=== PATIENT | male | born 1960 | race Caucasian/White ===

== ENCOUNTER 2017-10-04 17:13 | Emergency (ER) | payer OTHER ==
[2017-10-04 18:43] LABS: Absolute Lymphocytes (CBC) 2.4 K/uL (0.7-4.9); Absolute Neutrophil 6.7 K/uL (1.8-8.0); Eosinophils % 1.6 % (0-4.4); Hematocrit 46.7 % (39.6-49.0); Lymphocytes % 22.8 % (15.3-44.8); MCH 27.9 pg (27.0-35.0); MCV 83.8 fL (80-100); MPV 8.4 fL (7.6-11.3); Monocytes % 9.8 % (3.3-12.3); RBC Red Blood Cell Count 5.57 M/uL (4.33-5.43)
[2017-10-04 18:45] LABS: Protime INR 1.24
[2017-10-04 18:56] LABS: Potassium 4.3 mEq/L (3.6-5.0)
--- NOTE | 2017-10-04 19:59 | RAD REPORT ---
EXAM DESCRIPTION: VAS - Extremity Venous Uni Ltd - 10/04/2017 7:10 pm CLINICAL HISTORY: Leg pain and swelling COMPARISON: None. TECHNIQUE: Real-time sonographic evaluation of the right lower extremity deep venous systems was per formed. FINDINGS: Normal compressibility, flow augmentation, phasic flow and spontaneous flow are identified in the right lower extremity deep venous system. No intraluminal filling defects seen. IMPRESSION: No DVT in the right lower extremity.
--- NOTE | 2017-10-04 20:17 | EDPHYS ---
Physician Documentation [facility] Name: Tip Wilburn Age: 57 yrs Sex: Male : 1960 Arrival Date: 10/04/2017 Time: 17:17 Bed 7 Private MD: ED Physician Romero Downey HPI: 10/04 18:50 This 57 yrs old Male presents to ER via Ambulatory with complaints of Leg jr8 Swelling. 18:50 The patient presents with pain, swelling, tenderness. The complaints affect the right jr8 leg. Onset: The symptoms/episode began/occurred acutely, yesterday. Modifying factors: The symptoms are alleviated by nothing. the symptoms are aggravated by movement, weight bearing. Associated signs and symptoms: Pertinent positives: fever, warmth. Severity of symptoms: At their worst the symptoms were moderate, in the emergency department the symptoms are unchanged. The patient has not experienced similar symptoms in the past. The patient has not recently seen a physician. Historical: - Allergies: 17:40 unknown medication; ch - PMHx: 17:40 CHF; ch 17:42 Atrial Fib; ch - PSHx: 17:40 defibrilator-not pace maker; R knee; hernia repair with mesh; ch - Immunization history:: Adult Immunizations up to date. - Social history:: Smoking status: Patient/guardian denies using tobacco, Patient/guardian denies using alcohol, street drugs. ROS: 18:50 Eyes: Negative for injury, pain, redness, and discharge, ENT: Negative for injury, jr8 pain, and discharge, Neck: Negative for injury, pain, and swelling, Cardiovascular: Negative for chest pain, palpitations, and edema, Respiratory: Negative for shortness of breath, cough, wheezing, and pleuritic chest pain, Abdomen/GI: Negative for abdominal pain, nausea, vomiting, diarrhea, and constipation, Back: Negative for injury and pain, Skin: Negative for injury, rash, and discoloration, Neuro: Negative for headache, weakness, numbness, tingling, and seizure. 18:50 MS/extremity: Positive for erythema, pain, swelling, tenderness, warmth, of the right leg. Exam: 18:50 Eyes: Pupils equal round and reactive to light, extra-ocular motions intact. Lids and jr8 lashes normal. Conjunctiva and sclera are non-icteric and not injected. Cornea within normal limits. Periorbital areas with no swelling, redness, or edema. ENT: Nares patent. No nasal discharge, no septal abnormalities noted. Tympanic membranes are normal and external auditory canals are clear. Oropharynx with no redness, swelling, or masses, exudates, or evidence of obstruction, uvula midline. Mucous membranes moist. Neck: Trachea midline, no thyromegaly or masses palpated, and no cervical lymphadenopathy. Supple, full range of motion without nuchal rigidity, or vertebral point tenderness. No Meningismus. Cardiovascular: Regular rate and rhythm with a normal S1 and S2. No gallops, murmurs, or rubs. Normal PMI, no JVD. No pulse deficits. Respiratory: Lungs have equal breath sounds bilaterally, clear to auscultation and percussion. No rales, rhonchi or wheezes noted. No increased work of breathing, no retractions or nasal flaring. Abdomen/GI: Soft, non-tender, with normal bowel sounds. No distension or tympany. No guarding or rebound. No evidence of tenderness throughout. Back: No spinal tenderness. No costovertebral tenderness. Full range of motion. Skin: Warm, dry with normal turgor. Normal color with no rashes, no lesions, and no evidence of cellulitis. Neuro: Awake and alert, GCS 15, oriented to person, place, time, and situation. Cranial nerves II-XII grossly intact. Motor strength 5/5 in all extremities. Sensory grossly intact. Cerebellar exam normal. Normal gait. 18:50 Musculoskeletal/extremity: Extremities: grossly normal except: noted in the right leg: Patients lower right leg from tibial region to ankle his moderate erythema and swelling noted. Erythema circumferential. Mild tenderness. No palpable cord felt , ROM: intact in all extremities, Circulation is intact in all extremities. Sensation intact. DVT Exam: pain, of the right leg, swelling, of the right leg, tenderness, of the right leg, erythema, of the right leg, increased warmth, of the right leg. Vital Signs: 17:40 BP 135 / 82; Pulse 64; Resp 16; Temp 98.2; Pulse Ox 99% on R/A; Weight 148.32 kg; ch Height 6 ft. 2 in. (187.96 cm); Pain 0/10; 19:45 BP 112 / 75; Pulse 65; Resp 18 S; Pulse Ox 99% on R/A; Pain 3/10; ea 20:37 BP 118 / 78; Pulse 62; Resp 18 S; Pulse Ox 99% on R/A; Pain 0/10; ea 20:56 BP 123 / 87; Pulse 60; Resp 18 S; Pulse Ox 99% on R/A; Pain 0/10; ea 17:40 Body Mass Index 41.98 (148.32 kg, 187.96 cm) ch MDM: 17:44 Patient medically screened. jr8 20:01 Data reviewed: vital signs, nurses notes, lab test result(s), radiologic studies, jr8 ultrasound, and as a result, I will discharge patient. Data interpreted: Pulse oximetry: on room air is 99 %. Interpretation: normal. Counseling: I had a detailed discussion with the patient and/or guardian regarding: the historical points, exam findings, and any diagnostic results supporting the discharge/admit diagnosis, lab results, radiology results, the need for outpatient follow up, a family practitioner, to return to the emergency department if symptoms worsen or persist or if there are any questions or concerns that arise at home. ED course: Discussed with patient that there is no DVT. That this is a cellulitis. No WBC count. No fevers. Able to tolerate PO fluids. Is fine to go home with antibiotics at this point with the recognition that if he started to feel worse or infection was spreading that he immediately come back for admission and IV antibiotic therapy. and patient good with this and would f/u or come back if worse . 20:16 Response to treatment: the patient's symptoms have markedly improved after treatment, jr8 and as a result, I will discharge patient. 10/04 18:00 Order name: CBC with Diff; Complete Time: 18:52 8 10/04 18:00 Order name: Basic Metabolic Panel; Complete Time: 19:36 8 10/04 18:00 Order name: Protime (+inr); Complete Time: 18:52 8 10/04 18:00 Order name: US Extremity Venous Uni Ltd; Complete Time: 20:01 10/04 18:00 Order name: IV - Large Bore; Complete Time: 18:37 8 Administered Medications: 19:42 Drug: Clindamycin 600 mg Route: IVPB; Infused Over: 30 mins; Site: left antecubital; ea 20:15 Follow up: Response: No adverse reaction; IV Status: Completed infusion ea 19:42 Drug: Bactrim (160 mg-800 mg (DS) 1 tablet Route: PO; ea 20:45 Follow up: Response: No adverse reaction ea Disposition: 10/05 06:55 Co-signature as Attending Physician, Romero Downey MD I agree with the assessment and susan plan of care. Disposition: 10/04/17 20:16 Discharged to Home. Impression: Cellulitis of right lower limb. - Condition is Stable. - Discharge Instructions: Cellulitis. - Prescriptions for Clindamycin HCl 300 mg Oral Capsule - take 1 capsule by ORAL route every 6 hours for 10 days; 40 capsule. Tylenol- Codeine #3 300-30 mg Oral Tablet - take 2 tablet by ORAL route every 6 hours As needed; 30 tablet. Bactrim DS 800- 160 mg Oral Tablet - take 1 tablet by ORAL route every 12 hours for 10 days; 20 tablet. - Medication Reconciliation Form, Thank You Letter, Antibiotic Education, Presription Opioid Use form. - Follow up: Private Physician; When: 1 - 2 days; Reason: Recheck today's complaints, Continuance of care, Re-evaluation by your physician. - Problem is new. - Symptoms have improved. Signatures: Dispatcher [employer] Natasha Otto, RN Romero Bucio ch, MD MD cha Roszak, Josh, PA PA jr8 Susan Porras RN RN ea
--- NOTE | 2017-10-04 20:17 | ER ---
Nurse's Notes [facility] Name: Tip Wilburn Age: 57 yrs Sex: Male : 1960 Arrival Date: 10/04/2017 Time: 17:17 Bed 7 Private MD: Diagnosis: Cellulitis of right lower limb Presentation: 10/04 17:38 Presenting complaint: Patient states: I felt feverish and having chills yesterday. ch today I noticed my R leg is swollen and red, and tight. I had a pace maker put in June 2017, they said if I get swelling in my legs to come to the ER. Transition of care: patient was not received from another setting of care. Onset of symptoms was October 03, 2017 at 17:00. Care prior to arrival: None. 17:38 Method Of Arrival: Ambulatory 17:38 Acuity: BUNNY 3 ch Triage Assessment: 17:40 General: Appears in no apparent distress. comfortable, Behavior is calm, cooperative, ch appropriate for age. Pain: Complains of pain in right rubio and anterior aspect of right ankle Pain currently is 0 out of 10 on a pain scale. at worst was 3 out of 10 on a pain scale. Historical: - Allergies: 17:40 unknown medication; - PMHx: 17:40 CHF; 17:42 Atrial Fib; - PSHx: 17:40 defibrilator-not pace maker; R knee; hernia repair with mesh; ch - Immunization history:: Adult Immunizations up to date. - Social history:: Smoking status: Patient/guardian denies using tobacco, Patient/guardian denies using alcohol, street drugs. Screenin:36 Abuse screen: Denies threats or abuse. Denies injuries from another. Nutritional hb screening: No deficits noted. Tuberculosis screening: No symptoms or risk factors identified. Fall Risk None identified. Assessment: 18:25 General: Appears in no apparent distress. Behavior is calm, cooperative. hb 18:25 Pain: Pain currently is 3 out of 10 on a pain scale. Neuro: Level of Consciousness is hb awake, alert, obeys commands, Oriented to person, place, time, situation, Pupils are PERRLA. Cardiovascular: Capillary refill < 3 seconds Patient's skin is warm and dry. Respiratory: Airway is patent Trachea midline Respiratory effort is even, unlabored, Respiratory pattern is regular, symmetrical, Breath sounds are clear bilaterally. GI: No signs and/or symptoms were reported involving the gastrointestinal system. : No signs and/or symptoms were reported regarding the genitourinary system. EENT: No signs and/or symptoms were reported regarding the EENT system. Derm: Skin is pink, warm \T\ dry. redness to right lower exrtremity. Musculoskeletal: No signs and/or symptoms reported regarding the musculoskeletal system. 19:50 General: Appears in no apparent distress. Behavior is calm, cooperative. Pain: Pain ea currently is 3 out of 10 on a pain scale. Neuro: Level of Consciousness is awake, alert, obeys commands, Oriented to person, place, time, situation. Cardiovascular: Heart tones S1 S2 present Patient's skin is warm and dry. Respiratory: Airway is patent Respiratory effort is even, unlabored, Respiratory pattern is regular, symmetrical, Breath sounds are clear bilaterally. GI: No signs and/or symptoms were reported involving the gastrointestinal system. : No signs and/or symptoms were reported regarding the genitourinary system. EENT: No signs and/or symptoms were reported regarding the EENT system. Derm: Skin is dry, Skin temperature is warm redness noted to right lower extremity, area warm and tender to touch. 20:38 Reassessment: Patient and/or family updated on plan of care and expected duration. Pain ea level reassessed. Patient is alert, oriented x 3, equal unlabored respirations, skin warm/dry/pink. 20:55 Reassessment: Patient and/or family updated on plan of care and expected duration. Pain ea level reassessed. Patient is alert, oriented x 3, equal unlabored respirations, skin warm/dry/pink. Discharge instructions given to patient, verbalized the understanding of instructions. Vital Signs: 17:40 BP 135 / 82; Pulse 64; Resp 16; Temp 98.2; Pulse Ox 99% on R/A; Weight 148.32 kg; ch Height 6 ft. 2 in. (187.96 cm); Pain 0/10; 19:45 BP 112 / 75; Pulse 65; Resp 18 S; Pulse Ox 99% on R/A; Pain 3/10; ea 20:37 BP 118 / 78; Pulse 62; Resp 18 S; Pulse Ox 99% on R/A; Pain 0/10; ea 20:56 BP 123 / 87; Pulse 60; Resp 18 S; Pulse Ox 99% on R/A; Pain 0/10; ea 17:40 Body Mass Index 41.98 (148.32 kg, 187.96 cm) ED Course: 17:17 Patient arrived in ED. mr 17:39 Triage completed. 17:42 Arm band placed on left wrist. Patient placed in an exam room, on a stretcher. 17:44 Bubba Salinas PA is PHCP. jr8 17:44 Romero Downey MD is Attending Physician. jr8 18:12 Kendra Elizabeth, RN is Primary Nurse. hb 18:15 Note: went to go and get the patient. nurse putting in a line. will get patient in 15 cy min.. 18:15 Patient has correct armband on for positive identification. Placed in gown. Bed in low hb position. Call light in reach. Side rails up X 1. 18:28 Inserted saline lock: 22 gauge in left antecubital area, using aseptic technique. Blood hb collected. 18:53 Ultrasound completed. Patient tolerated well. cy 19:10 US Extremity Venous Uni Ltd In Process Unspecified. EDMS 20:54 No provider procedures requiring assistance completed. IV discontinued, intact, ea bleeding controlled, No redness/swelling at site. Pressure dressing applied. Administered Medications: 19:42 Drug: Clindamycin 600 mg Route: IVPB; Infused Over: 30 mins; Site: left antecubital; ea 20:15 Follow up: Response: No adverse reaction; IV Status: Completed infusion ea 19:42 Drug: Bactrim (160 mg-800 mg (DS) 1 tablet Route: PO; ea 20:45 Follow up: Response: No adverse reaction ea Outcome: 20:16 Discharge ordered by jr8 20:54 Discharge instructions given to patient, significant other, Instructed on discharge ea instructions, follow up and referral plans. medication usage, Demonstrated understanding of instructions, follow-up care, medications, Prescriptions given X 3. 20:56 Discharged to ea 20:56 Condition: improved 20:57 Patient left the ED. ea Signatures: Dispatcher [employer] EDMS Natasha Molina RN RN ch Rivera, Maria mr Bubba Salinas PA PA jr8 Kendra Elizabeth, FADIA LOAIZA Porras, Susan, RN RN ea Tobi, Chheannith cy
[2017-10-04] MEDS ORDERED: CLINDAMYCIN 600MG/D5W 600 MG/50 ML BAG IV ONE (20:20)
[2017-10-04] MEDS ORDERED: SMZ./TMP. 800/160 MG TABLET ONE (20:20)
--- NOTE | 2017-10-05 07:59 | EKG ---
Test Date: 2017-10-04 Test Time: 17:58:45 Correctional Case Manager: MEASUREMENT RESULTS: Intervals: Rate: 67 GA: QRSD: 190 QT: 462 QTc: 488 [place]: P: GA: QRS: -67 T: 76 INTERPRETIVE STATEMENTS: Ventricular-paced rhythm Abnormal ECG Compared to ECG 03/18/2011 16:24:38 Sinus rhythm no longer present Electronically Signed On 10-05-17 07:58:47 CDT by Vladimir Carbajal
== END 2017-10-04 20:57 | disposition home or self-care (01) ==
LOC: ER 17:13
DX: L03.115 Cellulitis of right lower limb (principal)
CPT/HCPCS: 36415; 80048; 85025; 85610; 93005; 93971; 96365; 99284

== ENCOUNTER 2020-02-17 07:47 | Emergency (ER) | payer OTHER ==
--- NOTE | 2020-02-17 08:37 | EDPHYS ---
Physician Documentation [facility] Name: Tip Wilburn Age: 59 yrs Sex: Male : 1960 Arrival Date: 02/17/2020 Time: 07:48 Bed 4 Private MD: ED Physician Romero Downey HPI: 02/16 08:36 This 59 yrs old Male presents to ER via Ambulatory with complaints of pm1 cellulitis. 08:36 The patient's rash thought to be caused by possible skin infection. The rash is located pm1 on the lateral aspect of left calf. The rash can be described as erythematous. Onset: The symptoms/episode began/occurred this morning. Associated signs and symptoms: Pertinent positives: Pain Pertinent negatives: burning sensation, fever, itching. Severity of symptoms: in the emergency department the symptoms are unchanged. Treatment given at home: None. The patient has experienced similar episodes in the past, multiple times. The patient has not recently seen a physician. Patient noticed reddened area and pain to lateral aspect of left calf this AM. Patient wanted to get treatment with antibiotics before it gets worse. He reports that he usually gets cellulitis to his lower extremities once every 4-5 months. Historical: - Allergies: 08:10 Unknown medication ("not an antibiotic"); aa5 - PMHx: 07:55 Atrial Fib; CHF; aa5 - PSHx: 07:55 defibrilator-not pacemaker; R knee; hernia repair with mesh; aa5 - Immunization history:: Last tetanus immunization: up to date. - Social history:: Smoking status: Patient denies any tobacco usage or history of. ROS: 08:36 Constitutional: Negative for fever, chills, and weight loss, Cardiovascular: Negative pm1 for chest pain, palpitations, and edema, Respiratory: Negative for shortness of breath, cough, wheezing, and pleuritic chest pain, Abdomen/GI: Negative for abdominal pain, nausea, vomiting, diarrhea, and constipation, Back: Negative for injury and pain, MS/Extremity: Negative for injury and deformity. 08:36 Neuro: Negative for headache, weakness, numbness, tingling, and seizure. 08:36 Skin: Positive for erythema, of the lateral aspect of left calf. Exam: 08:36 Constitutional: This is a well developed, well nourished patient who is awake, alert, pm1 and in no acute distress. Head/Face: Normocephalic, atraumatic. 08:36 Cardiovascular: Exam negative for acute changes, Rate: normal, Rhythm: regular, Pulses: no pulse deficits are appreciated. 08:36 Respiratory: Exam negative for acute changes, respiratory distress, shortness of breath. 08:36 Musculoskeletal/extremity: Extremities: all appear grossly normal, with no appreciated pain with palpation, ROM: intact in all extremities, Circulation is intact in all extremities. 08:36 Musculoskeletal/extremity: DVT Exam: No signs of deep vein thrombosis. 08:36 Skin: abscess, not appreciated, cellulitis, that is minimal, on the lateral aspect of left calf. 08:36 Neuro: Exam negative for acute changes, Orientation: is normal, Mentation: is normal, Motor: is normal, moves all fours. Vital Signs: 07:54 BP 108 / 69; Pulse 82; Resp 16 S; Temp 99.3(O); Pulse Ox 96% on R/A; Weight 97.52 kg aa5 (R); Height 6 ft. 2 in. (187.96 cm) (R); Pain 3/10; 09:11 BP 104 / 61; Pulse 75; Resp 16; Temp 99.1; Pulse Ox 97% ; bp 07:54 Body Mass Index 27.60 (97.52 kg, 187.96 cm) aa5 MDM: 08:02 Patient medically screened. [facility] 08:34 Data reviewed: vital signs. Data interpreted: Pulse oximetry: on room air is 96 %. pm1 Interpretation: normal. 08:36 Counseling: I had a detailed discussion with the patient and/or guardian regarding: the pm1 historical points, exam findings, and any diagnostic results supporting the discharge/admit diagnosis, the need for outpatient follow up, to return to the emergency department if symptoms worsen or persist or if there are any questions or concerns that arise at home. 08:38 ED course: Patient did not want labs or work up. Would just like antibiotics to treat pm1 infection. 08:46 ED course: Patient reports cellulitis once every 4-5 months to lower extremities. pm1 Possible colonization in the nares and has not been given intranasal mupirocin in the past. Therefore educated patient on applying intranasal as well as topical. Administered Medications: 09:00 Drug: Doxycycline 100 mg Route: PO; bp 09:18 Follow up: Response: No adverse reaction bp Disposition: 02/17 05:29 Co-signature as Attending Physician, Romero Downey MD I agree with the assessment and [facility] plan of care. Disposition: 02/17/20 08:36 Discharged to Home. Impression: Cellulitis of left lower limb. - Condition is Stable. - Discharge Instructions: Cellulitis, Adult. - Prescriptions for Bactroban 2 % Topical Ointment - Apply to affected area 1 application by TOPICAL route every 12 hours; 30 gram. Doxycycline Hyclate 100 mg Oral Tablet - take 1 tablet by ORAL route every 12 hours; 20 tablet. - Medication Reconciliation Form, Thank You Letter, Antibiotic Education, Prescription Opioid Use form. - Follow up: Emergency Department; When: As needed; Reason: Worsening of condition. Follow up: Private Physician; When: 2 - 3 days; Reason: Recheck today's complaints, Continuance of care, Re-evaluation by your physician. - Problem is new. - Symptoms have improved. Signatures: Romero Downey MD MD cha Calderon, Audri, RN RN aa5 Cosmo Scott NP [employer]ER[employer]ER pm1 Felix Malone, RN RN bp Corrections: (The following items were deleted from the chart) 02/16 09:19 08:36 02/17/2020 08:36 Discharged to Home. Impression: Cellulitis of left lower limb. bp Condition is Stable. Forms are Medication Reconciliation Form, Thank You Letter, Antibiotic Education, Prescription Opioid Use. Follow up: Emergency Department; When: As needed; Reason: Worsening of condition. Follow up: Private Physician; When: 2 - 3 days; Reason: Recheck today's complaints, Continuance of care, Re-evaluation by your physician. Problem is new. Symptoms have improved. pm1
--- NOTE | 2020-02-17 08:37 | ER ---
Nurse's Notes [facility] Name: Tip Wilburn Age: 59 yrs Sex: Male : 1960 Arrival Date: 02/17/2020 Time: 07:48 Bed 4 Private MD: Diagnosis: Cellulitis of left lower limb Presentation: 02/16 07:54 Chief complaint: Patient states: "I have cellulitis on my left leg and I am trying to aa5 catch it early". Pt states "It seems like I get cellulitis every 4 or 5 months". 07:54 Coronavirus screen: Patient reports a cough. Patient denies shortness of breath or aa5 difficulty breathing. Patient denies measured and/or subjective temperature greater than 100.4F prior to today's visit. Patient denies travel on a cruise ship or to a country the [facility] currently lists as an affected area. Patient denies contact with known and/or suspected case of COVID-19. Ebola Screen: Patient negative for fever greater than or equal to 101.5 degrees Fahrenheit, and additional compatible Ebola Virus Disease symptoms. Initial Sepsis Screen: Does the patient meet any 2 criteria? No. Patient's initial sepsis screen is negative. Does the patient have a suspected source of infection? Yes:. Risk Assessment: Do you want to hurt yourself or someone else? Patient reports no desire to harm self or others. Onset of symptoms was February 17, 2020. 07:54 Method Of Arrival: Ambulatory aa5 07:54 Acuity: BUNNY 3 aa5 Triage Assessment: 08:00 General: Appears in no apparent distress. uncomfortable, Behavior is calm, cooperative, bp appropriate for age. Pain: Complains of pain in left leg. EENT: No deficits noted. Neuro: No deficits noted. Cardiovascular: No deficits noted. Respiratory: No deficits noted. GI: No signs and/or symptoms were reported involving the gastrointestinal system. : No signs and/or symptoms were reported regarding the genitourinary system. Derm: Skin is red, LLE. Musculoskeletal: No deficits noted. Historical: - Allergies: 08:10 Unknown medication ("not an antibiotic"); aa5 - PMHx: 07:55 Atrial Fib; CHF; aa5 - PSHx: 07:55 defibrilator-not pacemaker; R knee; hernia repair with mesh; aa5 - Immunization history:: Last tetanus immunization: up to date. - Social history:: Smoking status: Patient denies any tobacco usage or history of. Screenin:09 Abuse screen: Denies threats or abuse. Denies injuries from another. Nutritional bp screening: No deficits noted. Tuberculosis screening: No symptoms or risk factors identified. Fall Risk None identified. Assessment: 08:00 General: SEE TRIAGE NOTE. bp 09:09 Reassessment: PT D/C HOME AMBULATORY, DX WITH CELLULITIS. bp Vital Signs: 07:54 BP 108 / 69; Pulse 82; Resp 16 S; Temp 99.3(O); Pulse Ox 96% on R/A; Weight 97.52 kg aa5 (R); Height 6 ft. 2 in. (187.96 cm) (R); Pain 3/10; 09:11 BP 104 / 61; Pulse 75; Resp 16; Temp 99.1; Pulse Ox 97% ; bp 07:54 Body Mass Index 27.60 (97.52 kg, 187.96 cm) aa5 ED Course: 07:48 Patient arrived in ED. as 07:48 Arm band placed on Patient placed in an exam room, on a stretcher. aa5 07:55 Felix Malone RN is Primary Nurse. bp 08:01 Cosmo Scott NP is PHCP. pm1 08:01 Romero Downey MD is Attending Physician. pm1 08:10 Triage completed. aa5 09:09 Patient has correct armband on for positive identification. Bed in low position. Call bp light in reach. Child being held by parent. 09:17 No provider procedures requiring assistance completed. Patient did not have IV access bp during this emergency room visit. Administered Medications: 09:00 Drug: Doxycycline 100 mg Route: PO; bp 09:18 Follow up: Response: No adverse reaction bp Outcome: 08:36 Discharge ordered by MD. pm1 09:17 Discharged to home ambulatory. bp 09:17 Condition: stable 09:17 Discharge instructions given to patient, Instructed on discharge instructions, follow up and referral plans. medication usage, Demonstrated understanding of instructions, follow-up care, medications, Prescriptions given X 2. 09:19 Patient left the ED. bp Signatures: Edwina Melvin Audri RN RN aa5 Cosmo Scott NP MANA[address] DRIVE pm1 Felix Malone, RN RN bp
[2020-02-17] MEDS ORDERED: DOXYCYCLINE 100 MG CAP PO ONE (09:24)
[2020-02-17 09:25] VITALS: BP 104/61; TEMP 99.1; O2SAT 97
== END 2020-02-17 09:19 | disposition home or self-care (01) ==
LOC: ER 07:47
DX: L03.116 Cellulitis of left lower limb (principal); I50.9 Heart failure, unspecified
CPT/HCPCS: 99283

== ENCOUNTER 2020-08-27 17:11 | Emergency (ER) | payer OTHER ==
--- NOTE | 2020-08-27 19:41 | EDPHYS ---
Physician Documentation [facility] Name: Tip Wilburn Age: 60 yrs Sex: Male : 1960 Arrival Date: 08/27/2020 Time: 17:12 Bed 16 Private MD: ED Physician Jerry West HPI: 08/27 23:15 This 60 yrs old Male presents to ER via Ambulatory with complaints of R Leg kb Pain. 23:15 The patient presents with cellulitis of the right rubio. Description: erythematous, kb swollen, warm. Onset: The symptoms/episode began/occurred today. Possible cause(s): unknown. Associated signs and symptoms: Pertinent positives: erythema, swelling, Pertinent negatives: discharge, drainage, foreign body sensation, fever, headache, nausea, shortness of breath, vomiting. Modifying factors: the symptoms are alleviated by nothing, the symptoms are aggravated by pressure. Severity of symptoms: At their worst the symptoms were mild, in the emergency department the symptoms are unchanged. The patient has experienced similar episodes in the past. The patient has not recently seen a physician. Pt reports slight redness, warmth and swelling to right lower leg that started this morning. States he has had cellulitis a few times before and it gets bad if he lets it go longer than a day so he came in to prevent having to stay in the hospital later. . Historical: - Allergies: 17:47 pantoprazole; ll1 - PMHx: 17:47 Atrial Fib; CHF; ll1 - PSHx: 17:47 defibrilator-not pacemaker; R knee; hernia repair with mesh; ll1 - Immunization history:: Flu vaccine is up to date. - Social history:: Smoking status: Patient denies any tobacco usage or history of. ROS: 23:14 Constitutional: Negative for fever, chills, and weight loss, Cardiovascular: Negative kb for chest pain, palpitations, and edema, Respiratory: Negative for shortness of breath, cough, wheezing, and pleuritic chest pain, Abdomen/GI: Negative for abdominal pain, nausea, vomiting, diarrhea, and constipation, MS/Extremity: Negative for injury and deformity, Neuro: Negative for headache, weakness, numbness, tingling, and seizure. 23:14 Skin: Positive for cellulitis, erythema, swelling, of the right rubio. Exam: 23:14 Constitutional: This is a well developed, well nourished patient who is awake, alert, kb and in no acute distress. Head/Face: Normocephalic, atraumatic. Chest/axilla: Normal chest wall appearance and motion. Nontender with no deformity. No lesions are appreciated. Cardiovascular: Regular rate and rhythm with a normal S1 and S2. No gallops, murmurs, or rubs. Normal PMI, no JVD. No pulse deficits. Respiratory: Lungs have equal breath sounds bilaterally, clear to auscultation and percussion. No rales, rhonchi or wheezes noted. No increased work of breathing, no retractions or nasal flaring. MS/ Extremity: Pulses equal, no cyanosis. Neurovascular intact. Full, normal range of motion. Neuro: Awake and alert, GCS 15, oriented to person, place, time, and situation. Cranial nerves II-XII grossly intact. Motor strength 5/5 in all extremities. Sensory grossly intact. Cerebellar exam normal. Normal gait. 23:14 Skin: cellulitis, that is mild, on the right leg. Vital Signs: 17:43 BP 106 / 63; Pulse 70; Resp 18; Temp 97.7; Pulse Ox 95% on R/A; Weight 147.42 kg; ll1 Height 6 ft. 2 in. (187.96 cm); Pain 1/10; 19:30 BP 92 / 75; Pulse 69; Resp 16; Pulse Ox 96% on R/A; jb4 19:45 BP 102 / 62; Pulse 69; Resp 18; Pulse Ox 96% on R/A; jb4 17:43 Body Mass Index 41.73 (147.42 kg, 187.96 cm) ll1 MDM: 19:11 Patient medically screened. kb 23:13 Data reviewed: vital signs, nurses notes. Data interpreted: Pulse oximetry: on room air kb is 96 %. Interpretation: normal. Counseling: I had a detailed discussion with the patient and/or guardian regarding: the historical points, exam findings, and any diagnostic results supporting the discharge/admit diagnosis, the need for outpatient follow up, a family practitioner, to return to the emergency department if symptoms worsen or persist or if there are any questions or concerns that arise at home. Administered Medications: 19:58 Drug: Doxycycline 100 mg Route: PO; jb4 19:58 Follow up: Response: Medication administered at discharge. jb4 Disposition: 08/28 05:59 Co-signature as Attending Physician, Jerry West MD I agree with the assessment and kdr plan of care. Disposition: 08/27/20 19:39 Discharged to Home. Impression: Cellulitis of right lower limb. - Condition is Stable. - Discharge Instructions: Cellulitis, Adult, [id number]. - Prescriptions for Doxycycline Hyclate 100 mg Oral Tablet - take 1 tablet by ORAL route every 12 hours; 20 tablet. - Medication Reconciliation Form, Thank You Letter, Antibiotic Education, Prescription Opioid Use form. - Follow up: Emergency Department; When: As needed; Reason: Worsening of condition. Follow up: Private Physician; When: 2 - 3 days; Reason: Recheck today's complaints, Continuance of care, Re-evaluation by your physician. Signatures: Renu Powell, TOPPIECE CUTTER-C TOPPIECE CUTTER-Jerry Mckoy MD MD kdr Miguel Glaser RN RN jb4 Tiffany Diaz RN RN ll1 Corrections: (The following items were deleted from the chart) 08/27 20:00 19:39 08/27/2020 19:39 Discharged to Home. Impression: Cellulitis of right lower limb. jb4 Condition is Stable. Forms are Medication Reconciliation Form, Thank You Letter, Antibiotic Education, Prescription Opioid Use. Follow up: Emergency Department; When: As needed; Reason: Worsening of condition. Follow up: Private Physician; When: 2 - 3 days; Reason: Recheck today's complaints, Continuance of care, Re-evaluation by your physician. kb
--- NOTE | 2020-08-27 19:41 | ER ---
Nurse's Notes [facility] Name: Tip Wilburn Age: 60 yrs Sex: Male : 1960 Arrival Date: 08/27/2020 Time: 17:12 Bed 16 Private MD: Diagnosis: Cellulitis of right lower limb Presentation: 08/27 17:43 Chief complaint: Patient states: RLE redness, pain, tenderness for 1 day. Fever 100.6 ll1 today. is covid positive, slight cough. Coronavirus screen: Client denies travel out of the [place] in the last 14 days. chills, cough unrelated to allergies, diarrhea, difficulty breathing, fever, headache, muscle pain, shaking with chills, shortness of breath, loss of taste or smell, Client presents with at least one sign or symptom that may indicate coronavirus-19. Standard/surgical mask placed on the client. Ebola Screen: Patient denies travel to an Ebola-affected area in the 21 days before illness onset. Initial Sepsis Screen: Does the patient meet any 2 criteria? No. Patient's initial sepsis screen is negative. Does the patient have a suspected source of infection? Yes: Skin breakdown/wound. Risk Assessment: Do you want to hurt yourself or someone else? Patient reports no desire to harm self or others. Onset of symptoms was August 27, 2020. 17:43 Method Of Arrival: Ambulatory ll1 17:43 Acuity: BUNNY 3 ll1 Historical: - Allergies: 17:47 pantoprazole; ll1 - PMHx: 17:47 Atrial Fib; CHF; ll1 - PSHx: 17:47 defibrilator-not pacemaker; R knee; hernia repair with mesh; ll1 - Immunization history:: Flu vaccine is up to date. - Social history:: Smoking status: Patient denies any tobacco usage or history of. Screenin:30 Abuse screen: Denies threats or abuse. Nutritional screening: No deficits noted. jb4 Tuberculosis screening: No symptoms or risk factors identified. Fall Risk None identified. Assessment: 19:33 General: Appears in no apparent distress. comfortable, Behavior is calm, cooperative, jb4 appropriate for age. Pain: Denies pain. Neuro: Level of Consciousness is awake, alert, obeys commands, Oriented to person, place, time, situation. Cardiovascular: Patient's skin is warm and dry. Respiratory: Airway is patent Respiratory effort is even, unlabored, Respiratory pattern is regular, symmetrical. GI: No signs and/or symptoms were reported involving the gastrointestinal system. : No signs and/or symptoms were reported regarding the genitourinary system. EENT: No signs and/or symptoms were reported regarding the EENT system. Derm: Skin is intact, Skin is pink, warm \T\ dry. Redness noted to the right lower extremity. Musculoskeletal: No signs and/or symptoms reported regarding the musculoskeletal system. Circulation, motion, and sensation intact. Range of motion: intact in all extremities. 19:58 Reassessment: Patient appears in no apparent distress at this time. Patient and/or jb4 family updated on plan of care and expected duration. Pain level reassessed. Patient is alert, oriented x 3, equal unlabored respirations, skin warm/dry/pink. 20:02 Reassessment: pt on phone, requesting the patient to be covid tested, informed pt sg that the provider will be notified of request but as of right now an order is not in the computer, pt stated understanding. Vital Signs: 17:43 BP 106 / 63; Pulse 70; Resp 18; Temp 97.7; Pulse Ox 95% on R/A; Weight 147.42 kg; ll1 Height 6 ft. 2 in. (187.96 cm); Pain 1/10; 19:30 BP 92 / 75; Pulse 69; Resp 16; Pulse Ox 96% on R/A; jb4 19:45 BP 102 / 62; Pulse 69; Resp 18; Pulse Ox 96% on R/A; jb4 17:43 Body Mass Index 41.73 (147.42 kg, 187.96 cm) ll1 ED Course: 17:12 Patient arrived in ED. ds1 17:46 Triage completed. ll1 17:47 Arm band placed on. ll1 19:11 Renu Powell F[facility]-C [facility]. kb 19:11 Jerry West MD is Attending Physician. kb 19:20 Miguel Glaser, FADIA is Primary Nurse. jb4 19:30 Patient has correct armband on for positive identification. Bed in low position. Call jb4 light in reach. Side rails up X 1. Pulse ox on. NIBP on. 20:00 No provider procedures requiring assistance completed. Patient did not have IV access jb4 during this emergency room visit. Administered Medications: 19:58 Drug: Doxycycline 100 mg Route: PO; jb4 19:58 Follow up: Response: Medication administered at discharge. jb4 Outcome: 19:39 Discharge ordered by . valeri 20:00 Discharged to home ambulatory. jb4 20:00 Condition: stable 20:00 Discharge instructions given to patient, Instructed on discharge instructions, follow up and referral plans. medication usage, Demonstrated understanding of instructions, follow-up care, medications, Prescriptions given X 1. 20:00 Patient left the ED. jb4 Signatures: Renu Powell, MBA INTERNSHIP-C MBA INTERNSHIP-Ckb Rico Marrufo, RN RN Dena Garcia ds1 Miguel Glaser RN RN jb4 Tiffany Diaz RN RN ll1 Corrections: (The following items were deleted from the chart) 19:59 17:43 Chief complaint: Patient states: RLE redness, pain, tenderness for 1 day. Fever ll1 100.6 today. is covid positive, no cough. ll1
[2020-08-27] MEDS ORDERED: DOXYCYCLINE 100 MG CAP PO ONE (20:10)
[2020-08-27 20:34] VITALS: TEMP 97.7
[2020-08-27 20:35] VITALS: O2SAT 96
[2020-08-27 20:37] VITALS: BP 102/62
== END 2020-08-27 20:00 | disposition home or self-care (01) ==
LOC: ER 17:11
DX: L03.115 Cellulitis of right lower limb (principal); Z88.8 Allergy status to other drugs, medicaments and biological substances
CPT/HCPCS: 99283

== ENCOUNTER 2022-06-25 16:00 | Emergency (ER) | payer OTHER ==
[2022-06-25 17:39] LABS: Absolute Lymphocytes (CBC) 2.5 K/uL (0.7-4.9); Hematocrit 46.9 % (39.6-49.0); Lymphocytes % 30.4 % (15.3-44.8); MCV 84.5 fL (80-100); MPV 7.6 fL (7.6-11.3); RBC Red Blood Cell Count 5.54 M/uL (4.33-5.43)
[2022-06-25 17:43] LABS: Protime INR 1.24
[2022-06-25 17:52] LABS: Potassium 4.2 mmol/L (3.5-5.1)
--- NOTE | 2022-06-25 18:29 | ER ---
Nurse's Notes [facility] Name: Tip Wilburn Age: 62 yrs Sex: Male : 1960 Arrival Date: 06/25/2022 Time: 16:04 Bed 11 Private MD: Diagnosis: Edema, unspecified;Bluish discoloration of 1st toes, bilateral feet Presentation: 06/25 16:33 Chief complaint: Patient states: Tingling in bilateral great toes x3 days that has now kb3 resolved. Pt reports yesterday the toenails began to look dark blue/black. Coronavirus screen: Vaccine status: Patient reports receiving the 2nd dose of the covid vaccine. Client denies travel out of the [place] in the last 14 days. Ebola Screen: Patient negative for fever greater than or equal to 101.5 degrees Fahrenheit, and additional compatible Ebola Virus Disease symptoms Patient denies exposure to infectious person. Patient denies travel to an Ebola-affected area in the 21 days before illness onset. Initial Sepsis Screen: Does the patient meet any 2 criteria? No. Patient's initial sepsis screen is negative. Does the patient have a suspected source of infection? No. Patient's initial sepsis screen is negative. Risk Assessment: Do you want to hurt yourself or someone else? Patient reports no desire to harm self or others. Onset of symptoms was June 22, 2022. 16:33 Method Of Arrival: Ambulatory kb3 16:33 Acuity: BUNNY 3 kb3 Triage Assessment: 16:35 General: Appears in no apparent distress. Behavior is calm, cooperative. Pain: Denies kb3 pain. Historical: - Allergies: 16:35 pantoprazole; kb3 - PMHx: 16:35 Atrial Fib; CHF; Hypertensive disorder; Hypercholesterolemia; NIDDM; GERD; kb3 - PSHx: 16:35 AICD; Knee sx; Hernia repair; Tonsillectomy; kb3 - Immunization history:: Adult Immunizations up to date, Client reports receiving the 2nd dose of the Covid vaccine, Last tetanus immunization: up to date. - Social history:: Smoking status: Patient denies any tobacco usage or history of. - Family history:: not pertinent. - Hospitalizations: : No recent hospitalization is reported. Vital Signs: 16:33 BP 130 / 95; Pulse 89; Resp 20; Temp 98.9; Pulse Ox 97% ; Weight 162.39 kg; Height 6 kb3 ft. 2 in. (187.96 cm); Pain 0/10; 16:33 Body Mass Index 45.96 (162.39 kg, 187.96 cm) kb3 ED Course: 16:04 Patient arrived in ED. mr 16:22 Dago Gallego MD is Attending Physician. rn 16:35 Triage completed. kb3 16:35 Arm band placed on right wrist. kb3 17:26 Inserted saline lock: 20 gauge in right antecubital area, using aseptic technique. Blood collected. 17:26 Protime (+inr) Sent. 17:26 Basic Metabolic Panel Sent. 17:26 Ptt, Activated Sent. 17:26 CBC with Diff Sent. 18:21 Gracie Martin, RN is Primary Nurse. [facility] 18:32 Extrem Venous W Compression Harman US In Process Unspecified. EDMS 18:32 Lower Extremity Arterial Bilat US In Process Unspecified. EDMS Administered Medications: No medications were administered Outcome: 18:28 Discharge ordered by . rn 18:36 Patient left the ED. [facility] Signatures: Dispatcher [employer] ED AdamLucy ashby mr Dago Gallego MD MD rn Rees, Jessica, RN RN 5 Maame Melvin Kelly, FADIA RN kb3 Corrections: (The following items were deleted from the chart) 16:38 16:35 Allergies: unknown medication; kb3 kb3 16:38 16:35 Allergies: Unknown medication ("not an antibiotic"); kb3 kb3
--- NOTE | 2022-06-25 18:29 | EDPHYS ---
Physician Documentation [facility] Name: Tip Wilburn Age: 62 yrs Sex: Male : 1960 Arrival Date: 06/25/2022 Time: 16:04 Bed 11 Private MD: ED Physician Dago Gallego HPI: 06/25 17:55 This 62 yrs old Male presents to ER via Ambulatory with complaints of Toe discoloration.rn 17:55 The patient presents with discoloration. The complaints affect the left foot, right rn foot. Onset: The symptoms/episode began/occurred 1 week(s) ago. Modifying factors: The symptoms are alleviated by nothing, the symptoms are aggravated by nothing. Associated signs and symptoms: Pertinent negatives: calf tenderness, fever, rash, swelling, warmth, weakness. Severity of symptoms: At their worst the symptoms were very mild, in the emergency department the symptoms are unchanged. The patient has not experienced similar symptoms in the past. The patient has not recently seen a physician. Pt reports approx 1 week of bluish discoloration under nails of bilateral 1st toes. No skin discoloration. NO pain. No trauma. . Historical: - Allergies: 16:35 pantoprazole; kb3 - PMHx: 16:35 Atrial Fib; CHF; Hypertensive disorder; Hypercholesterolemia; NIDDM; GERD; kb3 - PSHx: 16:35 AICD; Knee sx; Hernia repair; Tonsillectomy; kb3 - Immunization history:: Adult Immunizations up to date, Client reports receiving the 2nd dose of the Covid vaccine, Last tetanus immunization: up to date. - Social history:: Smoking status: Patient denies any tobacco usage or history of. - Family history:: not pertinent. - Hospitalizations: : No recent hospitalization is reported. ROS: 17:55 Constitutional: Negative for fever, chills, and weight loss, Cardiovascular: Negative rn for chest pain, palpitations, and edema, Respiratory: Negative for shortness of breath, cough, wheezing, and pleuritic chest pain, Abdomen/GI: Negative for abdominal pain, nausea, vomiting, diarrhea, and constipation, Back: Negative for injury and pain, MS/Extremity: + bluish discoloration of nails of bilateral 1st toes. Skin: + discoloration under bilateral nails of 1st toes. Neuro: Negative for headache, weakness, numbness, tingling, and seizure. Exam: 17:55 Constitutional: Overweight male, no acute distress Head/Face: Normocephalic, rn atraumatic. Eyes: Periorbital areas with no swelling, redness, or edema. Cardiovascular: Regular rate and rhythm. No pulse deficits. Respiratory: No increased work of breathing, no retractions or nasal flaring. Skin: Warm, dry, no disoloration of skin MS/ Extremity: Pulses equal, no cyanosis. Neurovascular intact. Full, normal range of motion. Equal circumference. Bluish discoloration of partial nailbeds of bilateral 1st toes, no discoloration of skin or toes/foot/legs Vital Signs: 16:33 BP 130 / 95; Pulse 89; Resp 20; Temp 98.9; Pulse Ox 97% ; Weight 162.39 kg; Height 6 kb3 ft. 2 in. (187.96 cm); Pain 0/10; 16:33 Body Mass Index 45.96 (162.39 kg, 187.96 cm) kb3 MDM: 16:22 Patient medically screened. rn 18:23 Differential diagnosis: vascular insufficiency, arterial insufficiency, DVT, poor rn circulation, afib. Data reviewed: vital signs, nurses notes, radiologic studies, doppler, ultrasound, and as a result, I will discharge patient. Counseling: I had a detailed discussion with the patient and/or guardian regarding: the historical points, exam findings, and any diagnostic results supporting the discharge/admit diagnosis, radiology results, the need for outpatient follow up, to return to the emergency department if symptoms worsen or persist or if there are any questions or concerns that arise at home. Special discussion: I discussed with the patient/guardian in detail that at this point there is no indication for admission to the hospital. It is understood, however, that if the symptoms persist or worsen the patient needs to return immediately for re-evaluation. Based on the history and exam findings, there is no indication for further emergent testing or inpatient evaluation. vascular. ED course: Good arterial blood flow bilaterally and no DVT, no signs of infection, bluish discoloration only of partial nailbeds bilaterally, no pain, no skin discoloration of cyanosis elsewhere, will dc home with return precautions and vascular/pcp f/u. Pt states is going to drive to [place] in [place]. Already on anticoagulation. NOthing to do emergently at this time.. 06/25 16:28 Order name: CBC with Diff; Complete Time: 17:54 rn 06/25 16:28 Order name: Basic Metabolic Panel; Complete Time: 17:54 rn 06/25 16:28 Order name: Extrem Venous W Compression Harman US rn 06/25 16:28 Order name: Lower Extremity Arterial Bilat US rn 06/25 16:28 Order name: Protime (+inr); Complete Time: 17:54 rn 06/25 16:28 Order name: Ptt, Activated; Complete Time: 17:54 rn 06/25 16:28 Order name: IV Start; Complete Time: 17:26 rn 06/25 16:34 Order name: EKG; Complete Time: 16:35 rn 06/25 16:34 Order name: EKG - Nurse/Tech; Complete Time: 18:36 rn Administered Medications: No medications were administered Disposition Summary: 06/25/22 18:28 Discharge Ordered Location: Home rn Problem: an ongoing problem rn Symptoms: are unchanged rn Condition: Stable rn Diagnosis - Edema, unspecified rn - Bluish discoloration of 1st toes, bilateral feet rn Followup: rn - With: Private Physician - When: 2 - 3 days - Reason: Recheck today's complaints, Re-evaluation by your physician Discharge Instructions: - Discharge Summary Sheet rn - Peripheral Edema rn Forms: - Medication Reconciliation Form rn - Thank You Letter rn - Antibiotic procedures rn - Prescription Opioid Use rn Signatures: Dispatcher [employer] EDDago Esparza MD MD rn Bradberry, Kelly, RN RN kb3 Corrections: (The following items were deleted from the chart) 16:38 16:35 Allergies: unknown medication; kb3 kb3 16:38 16:35 Allergies: Unknown medication ("not an antibiotic"); kb3 kb3
[2022-06-25 18:40] VITALS: BP 130/95; TEMP 98.9; O2SAT 97
--- NOTE | 2022-06-25 18:51 | RAD REPORT ---
EXAM DESCRIPTION: US - Extrem Venous W Compress Harman - 06/25/2022 6:30 pm CLINICAL HISTORY: discoloration of toes Bilateral leg edema and swelling. COMPARISON: Extremity Venous Uni Ltd dated 10/04/2017 TECHNIQUE: Real-time sonographic interrogation of the left and right lower extremity deep venous sys tems was performed. FINDINGS: Normal compressibility, flow augmentation, phasic flow and spontaneous flow is identified in both the left and right lower extremity deep venous systems. IMPRESSION: No sonographic evidence of left or right lower extremity deep venous thrombosis.
--- NOTE | 2022-06-25 18:52 | RAD REPORT ---
EXAM DESCRIPTION: US - Lower Extremity Arterial Bilat - 06/25/2022 6:30 pm CLINICAL HISTORY: PAIN COMPARISON: No comparisons TECHNIQUE: Bilateral lower extremity arterial Doppler examination was performed with waveform tracin g and velocity measurements. FINDINGS: Triphasic waveforms are seen throughout both lower extremity arterial systems to the level of the matteo salis pedis arteries. There is mild plaquing seen in both arterial systems. There is no high-grade stenosis or evidence of occlusion. IMPRESSION: No evidence of significant peripheral vascular disease.
--- NOTE | 2022-06-28 13:54 | EKG ---
Test Date: 2022-06-25 Test Time: 18:27:46 Welding Pantograph Machine Operator: MEASUREMENT RESULTS: Intervals: Rate: 76 MD: QRSD: 166 QT: 434 QTc: 488 [place]: P: MD: QRS: 240 T: 53 INTERPRETIVE STATEMENTS: Ventricular-paced rhythm Abnormal ECG Compared to ECG 10/04/2017 17:58:45 No significant changes Electronically Signed On 06-28-22 13:50:47 TRANSFER IRON OPERATOR by Valerio Hernandez
== END 2022-06-25 18:36 | disposition home or self-care (01) ==
LOC: ER 16:00
DX: R60.9 Edema, unspecified (principal); L81.9 Disorder of pigmentation, unspecified; I10 Essential (primary) hypertension; Z88.8 Allergy status to other drugs, medicaments and biological substances
CPT/HCPCS: 36415; 80048; 85025; 85610; 85730; 93005; 93925; 93970; 99283

== ENCOUNTER 2023-03-26 09:26 | Inpatient (IN) | payer OTHER ==
[2023-03-26 10:13] LABS: Absolute Lymphocytes (CBC) 1.4 K/uL (0.7-4.9); Hematocrit 47.3 % (39.6-49.0); Lymphocytes % 8.3 % (15.3-44.8); MCV 84.1 fL (80-100); MPV 7.6 fL (7.6-11.3); Platelets 191 thou/uL (152-406); RBC Red Blood Cell Count 5.62 M/uL (4.33-5.43)
[2023-03-26 10:28] LABS: Albumin 4.1 g/dL (3.4-5.0); Bilirubin Total 1.2 mg/dL (0.2-1.0); Potassium 4.2 mEq/L (3.5-5.1); Protein, Total 7.7 g/dL (6.4-8.2)
[2023-03-26 10:29] LABS: Protime INR 1.15
[2023-03-26] MEDS ORDERED: ACETAMINOPHEN 500 MG TAB ONE (11:21)
[2023-03-26] MEDS ORDERED: VANCOMYCIN 1 GM/VIAL ONE ×2 (11:21→22:40)
[2023-03-26] MEDS ORDERED: CEFTRIAXONE 1000 MG/VIAL ONE (11:21)
[2023-03-26] MEDS ORDERED: NA CHLORIDE 0.9% 500 ML ONE ×2 (11:22→22:30)
[2023-03-26] MEDS ORDERED: NA CHLORIDE 0.9% 250 ML ONE (11:22)
[2023-03-26] MEDS ORDERED: VANCOMYCIN 500 MG/VIAL ONE (11:22)
[2023-03-26] MEDS ORDERED: NA CHLORIDE 0.9% 1,000 ML ONE (11:22)
--- NOTE | 2023-03-26 12:10 | RAD REPORT ---
EXAM DESCRIPTION: Reba Single View03/26/2023 11:44 am CLINICAL HISTORY: DYSPNEA COMPARISON: CHEST PA AND LAT 2 VIEW dated 03/18/2011 TECHNIQUE: Portable AP view of the chest. FINDINGS: New patchy right basilar airspace opacification. Possible small right pleural effusion. A left chest wall pacer/ AICD is in place. No pneumothorax. The cardiomediastinal contours are unremark able. IMPRESSION: New patchy right basilar airspace opacification possible small right effusion. Findings raise concern for pneumonia.
--- NOTE | 2023-03-26 14:40 | RAD REPORT ---
EXAM DESCRIPTION: RAD - Tib Fib Left - 03/26/2023 2:26 pm CLINICAL HISTORY: Pain;Swelling COMPARISON: No comparisons TECHNIQUE: Left tibia and fibula, 2 views. FINDINGS: No fracture is identified. There is no dislocation or periosteal reaction noted. Epiphyses and growth plates are normal in appea kyree. No foreign body. Soft tissue swelling about the lower legs, including Prominent varicosities a long the medial aspect of the knee and lower aspect of the lower leg. IMPRESSION: No acute osseous abnormality. Soft tissue swelling as above.
--- NOTE | 2023-03-26 14:58 | ER ---
Nurse's Notes [facility] Name: Tip Wilburn Age: 62 yrs Sex: Male : 1960 Arrival Date: 03/26/2023 Time: 09:26 Bed 14 Private MD: Diagnosis: Cellulitis of left lower limb;Other pneumonia, unspecified organism Presentation: 03/26 09:44 Chief complaint: SOB, chills, joint pain, neck pain, and dark urine upon waking today. hb Coronavirus screen: Client presents with at least one sign or symptom that may indicate coronavirus-19. Provider contacted for isolation considerations. Ebola Screen: No symptoms or risks identified at this time. Risk Assessment: Do you want to hurt yourself or someone else? Patient reports no desire to harm self or others. Onset of symptoms was March 26, 2023. 09:44 Method Of Arrival: Wheelchair 09:44 Acuity: BUNNY 2 hb Historical: - Allergies: 09:46 pantoprazole; hb - Home Meds: 09:46 amiodarone 200 mg Oral tablet once [Active]; apixaban 5 mg oral tablet 2 times per day hb [Active]; atorvastatin 80 mg oral tablet daily [Active]; carvedilol 25 mg oral tablet 2 times per day [Active]; furosemide 40 mg Oral tablet daily [Active]; metformin 500 mg Oral tablet 2 times per day [Active]; omeprazole 20 mg Oral capsule,delayed release (e.c.) daily [Active]; sacubitril-valsartan 49-51 mg oral tablet 2 times per day [Active]; tamsulosin 0.4 mg oral capsule every day at bedtime [Active]; - PMHx: 09:46 Atrial Fib; CHF; GERD; Hypercholesterolemia; Hypertensive disorder; NIDDM; hb - PSHx: 09:46 AICD; hernia repair; knee sx; Tonsillectomy; hb - Immunization history:: Adult Immunizations up to date. - Social history:: Smoking status: . Screenin:48 [facility] Fall Risk Assessment (Adult) History of falling in the last 3 months, kc6 including since admission No falls in past 3 months (0 pts) Confusion or Disorientation No (0 pts) Intoxicated or Sedated No (0 pts) Impaired Gait No (0 pts) Mobility Assist Device Used No (0 pt) Altered Elimination No (0 pt) Score/Fall Risk Level 0 - 2 = Low Risk. Abuse screen: Denies threats or abuse. Denies injuries from another. Nutritional screening: No deficits noted. Tuberculosis screening: No symptoms or risk factors identified. Assessment: 09:47 General: Appears in no apparent distress. uncomfortable, obese, well groomed, Behavior kc6 is calm, cooperative, appropriate for age. Pain: Complains of pain in right and left shoulder, neck. Neuro: Level of Consciousness is awake, alert, obeys commands, Oriented to person, place, time, situation, Appropriate for age. Cardiovascular: Heart tones S1 S2 present Capillary refill < 3 seconds Rhythm is atrial fibrillation Chest pain is denied. Respiratory: Reports shortness of breath at rest on exertion Airway is patent Trachea midline Respiratory effort is even, pursed lip, Respiratory pattern is symmetrical, tachypnea. GI: No signs and/or symptoms were reported involving the gastrointestinal system. : No signs and/or symptoms were reported regarding the genitourinary system. EENT: No signs and/or symptoms were reported regarding the EENT system. Derm: No signs and/or symptoms reported regarding the dermatologic system. Skin is intact, is healthy with good turgor, Skin is pink, warm \T\ dry. Musculoskeletal: No signs and/or symptoms reported regarding the musculoskeletal system. Circulation, motion, and sensation intact. Capillary refill < 3 seconds, Range of motion: intact in all extremities. 10:47 Reassessment: Patient appears in no apparent distress at this time. No changes from kc6 previously documented assessment. Patient and/or family updated on plan of care and expected duration. Pain level reassessed. Patient is alert, oriented x 3, equal unlabored respirations, skin warm/dry/pink. 10:56 Reassessment: pt with increased temperature to 102.[address] West notified. kc6 11:40 Reassessment: Patient appears in no apparent distress at this time. No changes from kc6 previously documented assessment. Patient and/or family updated on plan of care and expected duration. Pain level reassessed. Patient is alert, oriented x 3, equal unlabored respirations, skin warm/dry/pink. 12:34 Reassessment: Patient appears in no apparent distress at this time. No changes from kc6 previously documented assessment. Patient and/or family updated on plan of care and expected duration. Pain level reassessed. Patient is alert, oriented x 3, equal unlabored respirations, skin warm/dry/pink. 13:37 Reassessment: Patient appears in no apparent distress at this time. No changes from kc6 previously documented assessment. Patient and/or family updated on plan of care and expected duration. Pain level reassessed. Patient is alert, oriented x 3, equal unlabored respirations, skin warm/dry/pink. 14:43 Reassessment: Patient appears in no apparent distress at this time. No changes from kc6 previously documented assessment. Patient and/or family updated on plan of care and expected duration. Pain level reassessed. Patient is alert, oriented x 3, equal unlabored respirations, skin warm/dry/pink. 15:24 Reassessment: Patient appears in no apparent distress at this time. No changes from kc6 previously documented assessment. Patient and/or family updated on plan of care and expected duration. Pain level reassessed. Patient is alert, oriented x 3, equal unlabored respirations, skin warm/dry/pink. 16:24 Reassessment: Patient appears in no apparent distress at this time. No changes from kc6 previously documented assessment. Patient and/or family updated on plan of care and expected duration. Pain level reassessed. Patient is alert, oriented x 3, equal unlabored respirations, skin warm/dry/pink. 17:17 Reassessment: Patient appears in no apparent distress at this time. No changes from kc6 previously documented assessment. Patient and/or family updated on plan of care and expected duration. Pain level reassessed. Patient is alert, oriented x 3, equal unlabored respirations, skin warm/dry/pink. 18:55 Reassessment: please see [facility] for further charting. kc6 19:30 General: Appears comfortable, Behavior is calm, cooperative. ha1 19:30 Pain: Denies pain. Neuro: Level of Consciousness is awake, alert, obeys commands, ha1 Oriented to person, place, time, situation. Cardiovascular: Heart tones S1 S2 present Capillary refill < 3 seconds Rhythm is atrial fibrillation. Respiratory: Airway is patent Respiratory effort is even, unlabored, Respiratory pattern is regular, symmetrical. 20:50 Reassessment: Report given to FADIA Bray. ha1 21:00 Reassessment: Patient and/or family updated on plan of care and expected duration. Pain ha1 level reassessed. Patient is alert, oriented x 3, equal unlabored respirations, skin warm/dry/pink. Vital Signs: 09:44 BP 119 / 80; Pulse 108; Resp 20; Pulse Ox 98% on R/A; Weight 158.76 kg; Height 6 ft. 2 hb in. ; Pain 6/10; 09:46 Pulse 93; Temp 99.2(O); kc6 10:24 BP 115 / 73; Pulse 91; Resp 20 S; Pulse Ox 94% on R/A; kc6 10:55 BP 121 / 64; Pulse 87; Resp 20 S; Temp 102.2(O); Pulse Ox 96% on R/A; kc6 11:40 BP 116 / 70; Pulse 88; Resp 20 S; Pulse Ox 96% on R/A; kc6 12:34 BP 105 / 66; Pulse 92; Resp 16 S; Pulse Ox 94% on R/A; kc6 12:45 Temp 100.7(O); kc6 13:37 BP 96 / 69; Pulse 82; Resp 19 S; Temp 99.5; Pulse Ox 97% on R/A; kc6 14:43 BP 107 / 72; Pulse 85; Resp 20 S; Pulse Ox 96% on R/A; kc6 15:24 BP 98 / 65; Pulse 80; Resp 20 S; Temp 98.5(O); Pulse Ox 98% on R/A; kc6 16:24 BP 110 / 63; Pulse 86; Resp 19 S; Pulse Ox 98% on R/A; kc6 17:17 BP 108 / 69; Pulse 78; Resp 16 S; Temp 98.9(O); Pulse Ox 98% on R/A; kc6 20:00 BP 121 / 65; Pulse 80; Resp 16 S; Pulse Ox 98% on R/A; ha1 09:44 Body Mass Index 44.94 (158.76 kg, 187.96 cm) hb 09:44 Pain Scale: Adult hb ED Course: 09:28 Patient arrived in ED. ts1 09:30 Jerry West MD is Attending Physician. kdr 09:35 Mary Lou Granados RN is Primary Nurse. kc6 09:46 Triage completed. hb 09:48 Patient has correct armband on for positive identification. Bed in low position. Call kc6 light in reach. Side rails up X2. Adult w/ patient. Client placed on continuous cardiac and pulse oximetry monitoring. NIBP monitoring applied. library monitor on. 09:50 Arm band placed on. hb 09:55 Initial lab(s) drawn, by me, sent to lab. First set of blood cultures drawn. db 09:56 Inserted saline lock: 20 gauge in left antecubital area, using aseptic technique. Blood db collected. 11:46 Chest Single View XRAY In Process Unspecified. EDMS 14:28 Tib Fib Left XRAY In Process Unspecified. EDMS 14:53 US Extremity Venous Unilateral Ltd In Process Unspecified. EDMS 14:56 Joseph Whitney MD is Hospitalizing Provider. kdr 15:03 Urinalysis w/ reflexes Sent. ds4 20:31 Primary Nurse role handed off by Mary Lou Granados RN wm 21:32 No provider procedures requiring assistance completed. Patient admitted, IV remains in ha1 place. Administered Medications: 11:25 Drug: Acetaminophen PO 1000 mg Route: PO; kc6 12:45 Follow up: Response: No adverse reaction; Temperature is decreased kc6 11:25 Drug: vancoMYCIN IVPB 1.5 grams Route: IVPB; Rate: calculated rate; Site: left kc6 antecubital; 13:45 Follow up: Response: No adverse reaction; IV Status: Completed infusion; IV Intake: kc6 250ml 11:25 Drug: Rocephin - Rocephin (cefTRIAXone) IVPB 2 grams Route: IVPB; Infused Over: 30 kc6 mins; Site: left antecubital; 13:45 Follow up: Response: No adverse reaction; IV Status: Completed infusion; IV Intake: [id number] 11:25 Drug: NS 0.9% IV 500 ml Route: IV; Rate: bolus; Site: left antecubital; kc6 13:45 Follow up: Response: No adverse reaction; IV Status: Completed infusion; IV Intake: kc6 500ml 11:25 Drug: NS 0.9% IV 1000 ml Route: IV; Rate: 125 ml/hr; Site: left antecubital; kc6 Medication: 21:10 VIS not applicable for this client. ha1 Intake: 13:45 IV: 250ml; Total: 250ml. kc6 13:45 IV: 50ml; Total: 300ml. kc6 13:45 IV: 500ml; Total: 800ml. kc6 Outcome: 14:58 Decision to Hospitalize by Provider. kdr 21:10 Admitted to Med/surg accompanied by nurse, via wheelchair, room 225, with chart, Report ha1 called to 225 21:10 Condition: stable 21:10 Discharge instructions given to patient, Instructed on the need for admit, Demonstrated understanding of instructions. 21:35 Patient left the ED. ha1 Signatures: Dispatcher [employer] EDMS Jerry West MD MD kdr Swanson, Donovan ds4 Kendra Elizabeth RN RN Barb Gutierrez Heidy, RN RN ha1 Mary Lou Granados RN RN kc6 Laura Castro RN RN db Payal Stone, CATHY PAS ts1 Corrections: (The following items were deleted from the chart) 21:34 19:30 General: Appears comfortable, Behavior is calm, cooperative, ha1 ha1
--- NOTE | 2023-03-26 14:59 | EDPHYS ---
Physician Documentation [facility] Name: Tip Wilburn Age: 62 yrs Sex: Male : 1960 Arrival Date: 03/26/2023 Time: 09:26 Bed 14 Private MD: ED Physician Jerry West HPI: 03/26 12:25 This 62 yrs old Male presents to ER via Wheelchair with complaints of Shortness Of kdr Breath. 12:25 Patient presents today complaining of shortness of breath and chills. He also complains kdr of generalized pain including is not joints and neck. He also noted that his urine has been dark today. Patient does not appear to be toxic but does appear generally ill. Onset: The symptoms/episode began/occurred suddenly, this morning. Severity of symptoms: At their worst the symptoms were moderate in the emergency department the symptoms are unchanged. The patient has not experienced similar symptoms in the past. The patient has not recently seen a physician. Historical: - Allergies: 09:46 pantoprazole; hb - Home Meds: 09:46 amiodarone 200 mg Oral tablet once [Active]; apixaban 5 mg oral tablet 2 times per day hb [Active]; atorvastatin 80 mg oral tablet daily [Active]; carvedilol 25 mg oral tablet 2 times per day [Active]; furosemide 40 mg Oral tablet daily [Active]; metformin 500 mg Oral tablet 2 times per day [Active]; omeprazole 20 mg Oral capsule,delayed release (e.c.) daily [Active]; sacubitril-valsartan 49-51 mg oral tablet 2 times per day [Active]; tamsulosin 0.4 mg oral capsule every day at bedtime [Active]; - PMHx: 09:46 Atrial Fib; CHF; GERD; Hypercholesterolemia; Hypertensive disorder; NIDDM; hb - PSHx: 09:46 AICD; hernia repair; knee sx; Tonsillectomy; hb - Immunization history:: Adult Immunizations up to date. - Social history:: Smoking status: . ROS: 12:25 Constitutional: Negative for fever, chills, and weight loss, Eyes: Negative for injury, kdr pain, redness, and discharge, ENT: Negative for injury, pain, and discharge, Neck: Negative for injury, pain, and swelling, Cardiovascular: Negative for chest pain, palpitations, and edema, Abdomen/GI: Negative for abdominal pain, nausea, vomiting, diarrhea, and constipation, Back: Negative for injury and pain, : Negative for injury, bleeding, discharge, and swelling, Neuro: Negative for headache, weakness, numbness, tingling, and seizure activity. Psych: Negative for depression, anxiety, suicide ideation, homicidal ideation, and hallucinations, Allergy/Immunology: Negative for hives, rash, and allergies, Endocrine: Negative for neck swelling, polydipsia, polyuria, polyphagia, and marked weight changes, Hematologic/Lymphatic: Negative for swollen nodes, abnormal bleeding, and unusual bruising. 12:25 Respiratory: Positive for dyspnea on exertion, shortness of breath. 12:25 MS/extremity: Positive for erythema, pain, swelling, tenderness, warmth, of the left rubio. Exam: 11:58 ECG was reviewed by the Attending Physician. kdr 12:25 Constitutional: This is a well developed, well nourished patient who is awake, alert, kdr and in no acute distress. Head/Face: Normocephalic, atraumatic. Eyes: Pupils equal round and reactive to light, extra-ocular motions intact. Lids and lashes normal. Conjunctiva and sclera are non-icteric and not injected. Cornea within normal limits. Periorbital areas with no swelling, redness, or edema. Neck: Trachea midline, no thyromegaly or masses palpated, and no cervical lymphadenopathy. Supple, full range of motion without nuchal rigidity, or vertebral point tenderness. No Meningismus. Chest/axilla: Normal chest wall appearance and motion. Nontender with no deformity. No lesions are appreciated. Cardiovascular: Regular rate and rhythm with a normal S1 and S2. No gallops, murmurs, or rubs. Normal PMI, no JVD. No pulse deficits. Respiratory: Lungs have equal breath sounds bilaterally, clear to auscultation and percussion. No rales, rhonchi or wheezes noted. No increased work of breathing, no retractions or nasal flaring. Abdomen/GI: Soft, non-tender, with normal bowel sounds. No distension or tympany. No guarding or rebound. No evidence of tenderness throughout. Back: No spinal tenderness. No costovertebral tenderness. Full range of motion. Skin: Warm, dry with normal turgor. Normal color with no rashes, no lesions, and no evidence of cellulitis. MS/ Extremity: Pulses equal, no cyanosis. Neurovascular intact. Full, normal range of motion. Neuro: Awake and alert, GCS 15, oriented to person, place, time, and situation. Cranial nerves II-XII grossly intact. Motor strength 5/5 in all extremities. Sensory grossly intact. Cerebellar exam normal. Normal gait. Psych: Awake, alert, with orientation to person, place and time. Behavior, mood, and affect are within normal limits. 12:25 Respiratory: mild respiratory distress is noted, Respirations: normal, Breath sounds: Vital Signs: 09:44 BP 119 / 80; Pulse 108; Resp 20; Pulse Ox 98% on R/A; Weight 158.76 kg; Height 6 ft. 2 hb in. ; Pain 6/10; 09:46 Pulse 93; Temp 99.2(O); kc6 10:24 BP 115 / 73; Pulse 91; Resp 20 S; Pulse Ox 94% on R/A; kc6 10:55 BP 121 / 64; Pulse 87; Resp 20 S; Temp 102.2(O); Pulse Ox 96% on R/A; kc6 11:40 BP 116 / 70; Pulse 88; Resp 20 S; Pulse Ox 96% on R/A; kc6 12:34 BP 105 / 66; Pulse 92; Resp 16 S; Pulse Ox 94% on R/A; kc6 12:45 Temp 100.7(O); kc6 13:37 BP 96 / 69; Pulse 82; Resp 19 S; Temp 99.5; Pulse Ox 97% on R/A; kc6 14:43 BP 107 / 72; Pulse 85; Resp 20 S; Pulse Ox 96% on R/A; kc6 15:24 BP 98 / 65; Pulse 80; Resp 20 S; Temp 98.5(O); Pulse Ox 98% on R/A; kc6 16:24 BP 110 / 63; Pulse 86; Resp 19 S; Pulse Ox 98% on R/A; kc6 17:17 BP 108 / 69; Pulse 78; Resp 16 S; Temp 98.9(O); Pulse Ox 98% on R/A; kc6 20:00 BP 121 / 65; Pulse 80; Resp 16 S; Pulse Ox 98% on R/A; ha1 09:44 Body Mass Index 44.94 (158.76 kg, 187.96 cm) hb 09:44 Pain Scale: Adult hb MDM: 12:25 Data reviewed: vital signs, nurses notes, EMS record. kdr 14:58 Patient medically screened. kdr 03/26 09:54 Order name: Urinalysis w/ reflexes; Complete Time: 18:46 kdr 03/26 10:08 Order name: Lactate w/ 2H reflex if indic.; Complete Time: 10:59 EDMS 03/26 10:08 Order name: Comprehensive Metabolic Panel; Complete Time: 10:59 EDMS 03/26 10:08 Order name: CBC with Automated Diff; Complete Time: 10:59 EDMS 03/26 10:09 Order name: Protime (+INR); Complete Time: 10:59 EDMS 03/26 10:09 Order name: PTT, Activated Partial Thromb; Complete Time: 10:59 EDMS 03/26 10:09 Order name: Blood Culture EDMS 03/26 10:09 Order name: Blood Culture EDNH 03/26 10:58 Order name: SARS-COV-2 RT PCR; Complete Time: 13:01 eb 03/26 10:58 Order name: Flu; Complete Time: 11:40 eb 03/26 14:17 Order name: Lactate Sepsis 2 HR Follow-up; Complete Time: 14:19 EDMS 03/26 17:59 Order name: Vancomycin Level Trough EDMS 03/26 19:06 Order name: Glucose, Ancillary Testing EDMS 03/26 19:10 Order name: Lactate w/ 2H reflex if indic. EDMS 03/26 09:54 Order name: Chest Single View XRAY; Complete Time: 13:01 kdr 03/26 12:28 Order name: Tib Fib Left XRAY; Complete Time: 14:58 kdr 03/26 14:21 Order name: US Extremity Venous Unilateral Ltd; Complete Time: 18:46 kdr 03/26 09:54 Order name: EKG; Complete Time: 10:44 kdr 03/26 09:54 Order name: Accucheck; Complete Time: 09:54 kdr 03/26 09:54 Order name: Cardiac monitoring; Complete Time: 09:54 kdr 03/26 09:54 Order name: EKG - Nurse/Tech; Complete Time: 09:54 kdr 03/26 09:54 Order name: IV Saline Lock - Large Bore; Complete Time: 09:54 kdr 03/26 09:54 Order name: Labs collected and sent; Complete Time: :54 kdr 03/26 09:54 Order name: O2 Per Protocol; Complete Time: :54 kdr 03/26 09:54 Order name: O2 Sat Monitoring; Complete Time: :54 kdr 03/26 09:54 Order name: Vital Signs; Complete Time: 09:54 kdr EC:58 Rate is 97 beats/min. Rhythm is irregularly irregular, A fib with No ectopy. QRS [place] kdr is Normal. [place] interval is normal. QRS interval is normal. Clinical impression: Atrial Fibrillation. Administered Medications: 11:25 Drug: Acetaminophen PO 1000 mg Route: PO; kc6 12:45 Follow up: Response: No adverse reaction; Temperature is decreased kc6 11:25 Drug: vancoMYCIN IVPB 1.5 grams Route: IVPB; Rate: calculated rate; Site: left kc antecubital; 13:45 Follow up: Response: No adverse reaction; IV Status: Completed infusion; IV Intake: kc6 250ml 11:25 Drug: Rocephin - Rocephin (cefTRIAXone) IVPB 2 grams Route: IVPB; Infused Over: 30 kc6 mins; Site: left antecubital; 13:45 Follow up: Response: No adverse reaction; IV Status: Completed infusion; IV Intake: [id number] 11:25 Drug: NS 0.9% IV 500 ml Route: IV; Rate: bolus; Site: left antecubital; kc6 13:45 Follow up: Response: No adverse reaction; IV Status: Completed infusion; IV Intake: kc6 500ml 11:25 Drug: NS 0.9% IV 1000 ml Route: IV; Rate: 125 ml/hr; Site: left antecubital; kc6 Disposition Summary: 03/26/23 14:58 Hospitalization Ordered Hospitalization Status: Inpatient Admission kdr Provider: Joseph Whitney Location: Telemetry/MedSurg (Inpatient) kdr Condition: Fair kdr Problem: new kdr Symptoms: have improved kdr Bed/Room Type: Standard kdr Room Assignment: 225(03/26/23 20:13) cg Diagnosis - Cellulitis of left lower limb kdr - Other pneumonia, unspecified organism kdr Forms: - Medication Reconciliation Form kdr - SBAR form kdr - Leadership Thank You Letter kdr Signatures: Dispatcher [employer] EDMS Jerry West MD MD kdr Everardo Daniels, ELECTRIC LINEMAN-C ELECTRIC LINEMAN-Cla1 Celia Pacheco, RN RN cg Kendra Elizabeth, Mary Lou Greer RN, RN RN kc6 Corrections: (The following items were deleted from the chart) 10:50 10:44 COMPREHENSIVE METABOLIC PANEL+C.LAB.BRZ ordered. EDMS EDMS 10:50 10:44 LACTATE+C.LAB.BRZ ordered. EDMS EDMS 12:50 10:44 CBC+H.LAB.BRZ ordered. EDMS EDMS 12:51 10:44 PROTIME (+INR)+COAG.LAB.BRZ ordered. EDMS EDMS 12:51 10:44 PTT, ACTIVATED+COAG.LAB.BRZ ordered. EDMS EDMS 13:01 10:44 BLOOD CULTURE*+BA.LAB.BRZ ordered. EDMS EDMS 20:13 14:58 kdr cg
[2023-03-26 15:28] LABS: Specific Gravity 1.022 (1.005-1.030); Urine Bacteria None Seen /HPF (<20); Urine Bilirubin NEGATIVE (Negative); Urine Blood Negative (Negative); Urine Clarity Clear (Clear); Urine Color Yellow (Yellow); Urine Glucose NEGATIVE (Negative); Urine Protein NEGATIVE (Negative); Urine RBC <5 /HPF (None Seen); Urine Urobilinogen Normal (Normal)
--- NOTE | 2023-03-26 15:33 | RAD REPORT ---
EXAM DESCRIPTION: US - Extremity Venous Uni Ltd - 03/26/2023 2:52 pm CLINICAL HISTORY: Pain, swelling COMPARISON: None. TECHNIQUE: Real-time sonographic evaluation of the left lower extremity deep venous system was perfo rmed. FINDINGS: Normal compressibility, flow augmentation, phasic flow and spontaneous flow is identified in the left lower extremity deep venous system. No intraluminal filling defects seen. IMPRESSION: No DVT in the left lower extremity.
[2023-03-26] MEDS ORDERED: GLUCAGON 1 MG/VIAL IM PRN (17:59)
[2023-03-26] MEDS ORDERED: D50W 25 GM/50 ML SYRINGE IV PRN (17:59)
[2023-03-26] MEDS: INSULIN -REGULAR HUMAN 50 UNIT/0.5 ML ML SQ SCH (18:00)
[2023-03-26] MEDS ORDERED: ACETAMINOPHEN 325 MG TABLET PO PRN (18:03)
[2023-03-26] MEDS ORDERED: DOCUSATE NA 100 MG CAP PO PRN (18:05)
--- NOTE | 2023-03-26 18:11 | P.HP ---
Patient History Date of Service: 03/26/23 History of Present Illness: Patient is a 62 y/o male presenting to the ED c/o SOB and chills with generalized pain occurring today at home and brought him to the ED. Pmhx DM2, HTN, HF with pacemaker, CAD(2016), GERD, chronic cellulitis to bilateral lower extremity. Patient stated he feels like his fever broke with diaphoresis noted. While in the ED BP 119/80, pulse 108, resp 20, Pulse ox 98% on RA, EKG rhythm is irregularly irregular, Afib with no ectopy, QRS axis is normal, AL interval is normal, WRS interval is normal. CXR reveals new patchy right basilar airspace opacification possible small right effusion concerning for pneumonia. On examination, left lower leg 2+, peripheral pulses present, left foot cool. ED administered acetaminophen, vancomycin, rocephin, and NS. Allergies unknown medi Allergy (Uncoded 10/04/17 21:03) Unknown - Past Medical/Surgical History Diabetic: Yes Review of Systems General: Fever, Chills Respiratory: Shortness of Breath Physical Examination - Physical Exam General: Alert, Oriented x3 HEENT: Atraumatic, Normocephalic, PERRLA Neck: Supple Respiratory: Clear to auscultation bilaterally Cardiovascular: Normal S1 S2, Edema, Irregular heart rate/rhythm Gastrointestinal: Normal bowel sounds, Distended Musculoskeletal: No clubbing Integumentary: Erythema - Studies Laboratory Data (last 24 hrs) 03/26/23 03/26/23 03/26/23 09:55 09:55 09:55 WBC 16.70 H Hgb 16.3 Hct 47.3 Plt Count 191 PT 12.7 H INR 1.15 APTT 35.4 Sodium 140 Potassium 4.2 BUN 14 Creatinine 1.46 H Glucose 175 H Total Bilirubin 1.2 H AST 14 L ALT 30 Alkaline Phosphatase 86 03/26/23 03/26/23 03/26/23 09:54 09:54 09:54 WBC Cancelled Hgb Cancelled Hct Cancelled Plt Count Cancelled PT Cancelled INR Cancelled APTT Cancelled Sodium Cancelled Potassium Cancelled BUN Cancelled Creatinine Cancelled Glucose Cancelled Total Bilirubin Cancelled AST Cancelled ALT Cancelled Alkaline Phosphatase Cancelled Microbiology Data (last 24 hrs): 03/26/23 11:05 Nasopharnyx Influenza Type A Antigen Screen - Final 03/26/23 11:05 Nasopharnyx Influenza Type B Antigen Screen - Final Assessment and Plan - Plan Assessment and plan Septic 2/2 Acute Cellulitis to left lower leg -lactic 2.5/2.1/2.3 -blood cultures pending -rocephin/vanc -IVF given in ED Acute pneumonia -blood cultures pending -vancomycin -IS DM2 -accucheck with SSI -monitor serum glucose in AM labs HTN -monitor BP Q4h -continue home medications when appropriate hx HF with afib pacemaker in place -supportive care -telemetry -continue home medications DVT ppx: heparin regular diet full code Discharge Plan: Home - Advance Directives Does patient have a Living Will: No Does patient have a Durable POA for Healthcare: No - Code Status/Comfort Care Code Status Assessed: Yes Code Status: Full Code
[2023-03-26] MEDS ORDERED: D10W 125 ML IV PRN (18:45)
[2023-03-26] MEDS ORDERED: VANCOMYCIN 2 GM in NA CHLORIDE 0.9% 500 ML IVPB SCH (21:00)
[2023-03-26] MEDS ORDERED: POLYETHYL GLY 3350 17 GM/DOSE PO PRN (22:46)
[2023-03-26 23:12] VITALS: BMI 43.7
[2023-03-27 03:14] LABS: Lymphocytes % 18.8 % (15.3-44.8); MCV 84.1 fL (80-100); MPV 8.1 fL (7.6-11.3); Platelets 128 thou/uL (152-406); RBC Red Blood Cell Count 4.76 M/uL (4.33-5.43)
[2023-03-27 03:15] LABS: Absolute Lymphocytes (CBC) 2.2 K/uL (0.7-4.9)
[2023-03-27 03:38] LABS: Albumin 2.9 g/dL (3.4-5.0); Bilirubin Total 0.9 mg/dL (0.2-1.0); Magnesium 1.7 mg/dL (1.6-2.4); Phosphorus 2.2 mg/dL (2.5-4.9); Potassium 3.7 mEq/L (3.5-5.1); Protein, Total 5.8 g/dL (6.4-8.2)
[2023-03-27] MEDS: INSULIN -REGULAR HUMAN 50 UNIT/0.5 ML ML SQ SCH ×5 (05:50→20:56)
[2023-03-27] MEDS: PANTOPRAZOLE 40MG TABLET PO SCH (05:51)
[2023-03-27] MEDS: carvediloL 25 MG TAB PO SCH ×2 (08:47→17:33)
[2023-03-27] MEDS: ATORVASTATIN 80 MG TAB PO SCH (08:47)
[2023-03-27] MEDS: CEFTRIAXONE 2,000 MG in NA CHLORIDE 0.9% 100 ML IV SCH (08:47)
[2023-03-27] MEDS: AMIODARONE HCL 200 MG TAB PO SCH (08:48)
[2023-03-27] MEDS: APIXABAN 5 MG TABLET PO SCH ×2 (08:48→20:55)
[2023-03-27] MEDS: SACUBITRIL/VALSARTAN 49/51 MG TAB PO SCH ×2 (08:49→20:55)
[2023-03-27] MEDS: FUROSEMIDE 40 MG TABLET PO SCH (08:49)
[2023-03-27] MEDS ORDERED: VANCOMYCIN 1 GM in NA CHLORIDE 0.9% 250 ML IVPB SCH (11:00)
--- NOTE | 2023-03-27 11:50 | P.PN ---
Subjective Date of Service: 03/27/23 No acute events overnight. He reports that his pain is well-controlled. He has not noted any significant changes in his erythema or swelling. He denies any chest pain, fevers, chills, or shortness of breath. Review of Systems 10-point ROS is otherwise unremarkable Integumentary: Rash (LLE cellulitis) Physical Examination - Vital Signs Temperature: 97.5 F Blood Pressure: 119/56 Pulse: 82 Respirations: 18 Pulse Ox (%): 93 - Physical Exam General: Alert, In no apparent distress, Oriented x3 HEENT: Atraumatic, Mucous membr. moist/pink, Sclerae nonicteric Neck: JVD not distended Respiratory: Clear to auscultation bilaterally, Normal air movement Cardiovascular: Regular rate/rhythm, Normal S1 S2, No gallops, No rubs, No murmurs, Edema (trace-1+ BLE) Gastrointestinal: Normal bowel sounds, Soft and benign, Non-distended, No tenderness, No rebound, No guarding Musculoskeletal: No clubbing Integumentary: Erythema (significant erythema, tenderness, warmth to anterior left lower extremity) Neurological: Normal speech, Normal affect - Studies Laboratory Data (last 24 hrs) 03/26/23 03/26/23 09:54 09:54 WBC Cancelled Hgb Cancelled Hct Cancelled Plt Count Cancelled PT Cancelled INR Cancelled APTT Cancelled Microbiology Data (last 24 hrs): 03/26/23 11:05 Nasopharnyx Influenza Type A Antigen Screen - Final 03/26/23 11:05 Nasopharnyx Influenza Type B Antigen Screen - Final Assessment And Plan - Plan # Severe Sepsis likely secondary to Left Lower Extremity Nonpurulent Cellulitis +/- Community-Acquired Pneumonia He met SIRS criteria based on temperature > 100.9 F, HR > 90 bpm, and WBC > 12,000, and the suspected source is cellulitis and pneumonia. Severe sepsis is suspected due to concern for tissue hypoperfusion/organ dysfunction based on lactic acid > 2 mmol/L. - Radiology: - Chest x-ray = "new patchy right basilar airspace opacification possible small right effusion. Findings raise concern for pneumonia." - Left tib/fib x-ray = "no acute osseous abnormality. Soft tissue swelling as above." - Left lower extremity Doppler = "no DVT in the left lower extremity" - Sepsis order set was initiated - Lactate trend: 2.5 -> 2.1 -> 2.3 -> 2.3 -> 1.9 - Blood cultures drawn - Broad spectrum antibiotics started: Vancomycin + Ceftriaxone - In regards to fluids: - 30 mL/kg of IV fluids was not administered given SBP > 90, MAP > 65, lactic acid < 4 # Hyperglycemia in Type II Diabetes Mellitus - Correction scale insulin # Chronic Compensated Congestive Heart Failure # Hypertension - Suspect systolic given home medications - Continue home carvedilol, furosemide, sacubutril-valsartan # Chronic Atrial Fibrillation s/p PPM - Continue home carvedilol, amiodarone, apixaban # Dyslipidemia - Continue home atorvastatin Joseph Whitney M.D.
[2023-03-27] MEDS: VANCOMYCIN 1.25 GM in NA CHLORIDE 0.9% 250 ML IVPB SCH (17:34)
--- NOTE | 2023-03-27 18:47 | P.PN ---
Date of Service: 03/28/23 Subjective: Physical Exam: Vitals: Reviewed Gen: Alert, Oriented, NAD CV: regular rate & rhythm, trace-1+ BLE edema Pulm: Respirations are clear bilaterally Abd: soft, nontender, nondistended MSK: no joint tenderness Integumentary: significant erythema, tenderness, warmth to anterior left lower extremity Neuro: normal speech, normal affect Problem List: Severe Sepsis likely secondary to LLE Nonpurulent Cellulitis +/- Community- Acquired Pneumonia DM2 with hyperglycemia Chronic Compensated CHF Hypertension Chronic Atrial Fibrillation s/p PPM Dyslipidemia Plan: Follow cultures continue empiric Vancomycin / Ceftriaxone sliding scale insulin Continue home carvedilol, furosemide, sacubutril-valsartan Continue home amiodarone Continue home eliquis Continue home atorvastatin
[2023-03-28] MEDS: PANTOPRAZOLE 40MG TABLET PO SCH (05:44)
[2023-03-28 06:46] LABS: Hematocrit 41.4 % (39.6-49.0); Lymphocytes % 25.3 % (15.3-44.8); MPV 7.6 fL (7.6-11.3); Platelets 145 thou/uL (152-406); RBC Red Blood Cell Count 4.93 M/uL (4.33-5.43)
[2023-03-28 06:59] LABS: Potassium 3.7 mEq/L (3.5-5.1)
[2023-03-28] MEDS: INSULIN -REGULAR HUMAN 50 UNIT/0.5 ML ML SQ SCH ×4 (07:30→21:00)
[2023-03-28] MEDS: carvediloL 25 MG TAB PO SCH ×2 (08:00→17:38)
[2023-03-28] MEDS: ATORVASTATIN 80 MG TAB PO SCH (09:19)
[2023-03-28] MEDS: SACUBITRIL/VALSARTAN 49/51 MG TAB PO SCH ×2 (09:19→21:39)
[2023-03-28] MEDS: FUROSEMIDE 40 MG TABLET PO SCH (09:19)
[2023-03-28] MEDS: AMIODARONE HCL 200 MG TAB PO SCH (09:19)
[2023-03-28] MEDS: APIXABAN 5 MG TABLET PO SCH ×2 (09:20→21:39)
[2023-03-28] MEDS: CEFTRIAXONE 2,000 MG in NA CHLORIDE 0.9% 100 ML IV SCH (09:21)
[2023-03-28] MEDS: VANCOMYCIN 1.25 GM in NA CHLORIDE 0.9% 250 ML IVPB SCH (12:32)
[2023-03-29] MEDS: VANCOMYCIN 1.25 GM in NA CHLORIDE 0.9% 250 ML IVPB SCH (05:47)
[2023-03-29] MEDS: PANTOPRAZOLE 40MG TABLET PO SCH (07:29)
[2023-03-29] MEDS: INSULIN -REGULAR HUMAN 50 UNIT/0.5 ML ML SQ SCH (07:30)
[2023-03-29] MEDS: carvediloL 25 MG TAB PO SCH (08:00)
[2023-03-29 08:13] VITALS: O2SAT 96
[2023-03-29] MEDS: FUROSEMIDE 40 MG TABLET PO SCH (08:14)
[2023-03-29] MEDS: APIXABAN 5 MG TABLET PO SCH (08:14)
[2023-03-29] MEDS: CEFTRIAXONE 2,000 MG in NA CHLORIDE 0.9% 100 ML IV SCH (08:14)
[2023-03-29] MEDS: AMIODARONE HCL 200 MG TAB PO SCH (08:15)
[2023-03-29] MEDS: ATORVASTATIN 80 MG TAB PO SCH (08:15)
[2023-03-29] MEDS: SACUBITRIL/VALSARTAN 49/51 MG TAB PO SCH (08:15)
[2023-03-29 08:16] VITALS: BP 98/77
[2023-03-29 08:42] VITALS: TEMP 97.9
--- NOTE | 2023-03-29 16:58 | EKG ---
Test Date: 2023-03-26 Test Time: 09:41:38 Global Program Manager: LUZ MEASUREMENT RESULTS: Intervals: Rate: 97 VA: QRSD: 74 QT: 322 QTc: 408 [place]: P: VA: QRS: 73 T: 195 INTERPRETIVE STATEMENTS: Atrial fibrillation Low voltage QRS Septal infarct, age undetermined ST & T wave abnormality, consider lateral ischemia Abnormal ECG Compared to ECG 06/25/2022 18:27:46 Low QRS voltage now present Myocardial infarct finding now present ST (T wave) deviation now present Possible ischemia now present Ventricular-paced complex(es) or rhythm no longer present Electronically Signed On 03-29-23 16:48:00 CDT by Valerio Hernandez
== END 2023-03-29 09:50 | disposition home or self-care (01) | DRG 871 ==
LOC: ER 09:26 → ERHOLD 17:46 → 2ND 20:22
PROVIDERS: ADMIT Internal Medicine; ATTEND Hospitalist
DX: A41.9 Sepsis, unspecified organism (principal); J18.9 Pneumonia, unspecified organism; L03.116 Cellulitis of left lower limb; I48.20 Chronic atrial fibrillation, unspecified; I50.22 Chronic systolic (congestive) heart failure; I11.0 Hypertensive heart disease with heart failure; E11.65 Type 2 diabetes mellitus with hyperglycemia; E78.00 Pure hypercholesterolemia, unspecified; K21.9 Gastro-esophageal reflux disease without esophagitis; I25.10 Atherosclerotic heart disease of native coronary artery without angina pectoris; R65.20 Severe sepsis without septic shock; Z95.0 Presence of cardiac pacemaker; Z88.8 Allergy status to other drugs, medicaments and biological substances; Z79.02 Long term (current) use of antithrombotics/antiplatelets; Z79.899 Other long term (current) drug therapy; Z20.822 Contact with and (suspected) exposure to COVID-19
CPT/HCPCS: 36415; 71045; 80048; 80053; 80202; 81001; 82947; 83605; 83735; 84100; 85025; 85610; 85730; 87040; 87635; 87804; 93005; 93971; 96365; 96366; 96368; 99285; J0696; J7030; J7040; J7050

== ENCOUNTER 2023-11-27 16:46 | Emergency (ER) | payer OTHER ==
--- OUTSIDE RECORDS SUMMARY | 2023-11-27 16:49 | XMS REPORT | Continuity of Care Document ---
Author Name Unknown Address [address] [address] [facility] [address] [place] [address] [facility] Address [address] [facility] [place] [address] Care Team Providers Care Florist'S Decorator Name Role Phone Pcp, Patient Does Not Have A Primary Care Physic monique BLANCA HA Attending Clinician Natasha Nuñez Attending Clinician [phone] NATASHA BREEN Attending Clinician Shelley Ha MD, Blanca Edge Attending Clinician Payers Payer Name Policy Type Policy Number Effective Date Expirati on Date Source Allergies, Adverse Reactions, Alerts Allergy Name Allergy Type Status Severity Reaction(s) Onset Date Inactive Date Treating Clinician Comments Source Pantopra zole Propensi ty to adverse reaction s Active Itching 11-25 00:00: 00 [facility] PANTOPRA ZOLE DRUG INGREDI Active ITCHING 11-25 00:00: 00 [facility] Social History Social Habit Start Date Stop Date Quantity Comments [facility] Social function 2023-10-24 00:00:00 2023-10-24 00:00:00 [facility] Sex Assigned At 1960 00:00:00 1960 00:00:00 [facility] Smoking Status Start Date Stop Date Source Tobacco smoking consumption unknown [facility] Medications Ordered Medication Name Filled Medication Name Start Date Stop Date Current Medication? Ordering Clinician Indication Dosage Frequency Signature (SIG) Comments Components Source doxycycline hyclate 100 mg capsule 10-23 13:32: 01 Yes 100mg Take 1 capsule by mouth. [facility] fluticasone propionate 50 mcg/actuati on nasal spray 10-23 13:32: 01 Yes 1{spray } Use 1 [place] in each nostril. [facility] omeprazole 20 mg capsule 10-23 13:32: 01 Yes 20mg Take 1 capsule by mouth. [facility] tamsulosin 0.4 mg 24 hr capsule 10-23 13:32: 01 Yes .4mg Take 1 capsule by mouth. [facility] amiodarone (PACERONE) 200 mg tablet 09-21 00:00: 00 Yes 200mg 1 tablet. [facility] apixaban 5 mg tablet 09-21 00:00: 00 Yes 5mg 1 tablet. [facility] atorvastati n 80 mg tablet 09-21 00:00: 00 Yes 40mg 0.5 tablets. [facility] carvediloL 25 mg tablet 09-21 00:00: 00 Yes 12.5mg Take 0.5 tablets by mouth. [facility] ergocalcife rol, vitamin d2, 1,250 mcg (50,000 unit) capsule 09-21 00:00: 00 Yes 1250ug 1,250 mcg. [facility] furosemide 20 mg tablet 09-21 00:00: 00 Yes 20mg 1 tablet. [facility] metFORMIN 500 mg tablet 09-21 00:00: 00 Yes 500mg 1 tablet. [facility] sacubitriL- valsartan 49-51 mg tablet 2022-07 00:00: 00 Yes TAKE 1 TABLET BY MOUTH TWICE A DAY FOR HEART / BLOOD PRESSURE (REPLACES LOSARTAN) [facility] minocycline 100 mg tablet 03-29 00:00: 00 Yes 100mg 1 tablet. [facility] Immunizations Ordered Immunization Name Filled Immunization Name Date Status Comments Source SARS-COV-2 COVID-19 PFIZER VACCINE Unknown Completed [facility] SARS-COV-2 COVID-19 PFIZER VACCINE Unknown Completed [facility] SARS-COV-2 COVID-19 PFIZER VACCINE Unknown Completed [facility] SARS-COV-2 COVID-19 PFIZER VACCINE Unknown Completed [facility] SARS-COV-2 COVID-19 PFIZER VACCINE Unknown Completed [facility] SARS-COV-2 COVID-19 PFIZER VACCINE Unknown Completed [facility] SARS-COV-2 COVID-19 PFIZER VACCINE Unknown Completed [facility] SARS-COV-2 COVID-19 PFIZER VACCINE Unknown Completed [facility] SARS-COV-2 COVID-19 PFIZER VACCINE Unknown Completed [facility] SARS-COV-2 COVID-19 PFIZER VACCINE Unknown Completed [facility] Vital Signs Vital Name Observation Time Observation Value Comments S jose Systolic blood pressure 2023-10-24 18:32:00 130 mm[Hg] [facility] Diastolic blood pressure 2023-10-24 18:32:00 78 mm[Hg] [facility] Heart rate 2023-10-24 18:32:00 73 /min [facility] Respiratory rate 2023-10-24 18:32:00 18 /min [facility] Body height 2023-10-24 18:32:00 188 cm [facility] Body weight 2023-10-24 18:32:00 156.945 kg [facility] BMI 2023-10-24 18:32:00 44.42 kg/m2 [facility] Oxygen saturation in Arterial blood by Pulse oximetry 2023-10-24 18:32:00 97 /min [facility] Procedures Procedure Date / Time Performed Performing Clinicia n Source AORTOILIAC DUPLEX - BY VASCULAR LAB 2023-11-22 16:19:00 Natasha Breen [facility] CAROTID DUPLEX BILATERAL - BY VASCULAR LAB 2023-11-22 16:00:00 Natasha Breen [facility] VENOUS REFLUX DUPLEX BILATERAL - BY VASCULAR LAB 2023-11-22 15:00:00 Natasha Breen [facility] Encounters Start Date/Time End Date/Time Encounter Type Admission Type Attending Clinicians Care Facility Care Department Encounter ID Source 2023-11-22 08:49:01 2023-11-22 23:59:00 Hospital Encounter Natasha Breen [facility] [id number] [facility] 2023-11-22 08:48:51 2023-11-22 08:48:51 Hospital Encounter Eunice Natasha [facility] [id number] [facility] 2023-11-22 08:48:45 2023-11-22 08:48:45 Outpatient R NATASHA BREEN [facility] [id number] [facility] 2023-11-22 08:48:45 2023-11-22 08:48:45 Hospital Encounter Natasha Breen [facility] [id number] [facility] 2023-10-24 14:00:00 2023-10-24 14:27:43 Outpatient R BLANCA HA [facility] [id number] [facility] 2023-10-24 14:00:00 2023-10-24 14:27:43 Office Visit Blanca Ha [facility] PROFESSIO [facility] [id number] [facility]
--- NOTE | 2023-11-27 18:31 | RAD REPORT ---
EXAM DESCRIPTION: USExtremity Venous Uni Ltd11/27/2023 5:56 pm CLINICAL HISTORY: left leg pain COMPARISON: 2022 FINDINGS: Left common femoral, superficial femoral, greater saphenous, popliteal and posterior tibi al veins are compressible and demonstrate augmentation. Doppler demonstrates good flow. Grayscale, color and spectral analysis performed on all vessels IMPRESSION: No evidence of deep venous thrombosis involving the left lower extremity.
[2023-11-27] MEDS ORDERED: FENTANYL CITR 100 MCG/2 ML ONE (18:40)
[2023-11-27 18:47] LABS: Absolute Eosinophils 0.1 K/uL (0-0.5); Absolute Lymphocytes (CBC) 2.4 K/uL (0.7-4.9); Absolute Monocytes 0.7 K/uL (0.1-1.3); Absolute Neutrophil 4.6 K/uL (1.8-8.0); Basophils % 0.5 % (0-1.3); Eosinophils % 1.2 % (0-4.4); Hemoglobin 14.1 g/dL (13.6-17.9); Lymphocytes % 30.4 % (15.3-44.8); MCH 28.7 pg (27.0-35.0); MCHC 33.5 g/dL (32.0-36.0); MCV 85.4 fL (80-100); MPV 7.9 fL (7.6-11.3); Monocytes % 8.8 % (3.3-12.3); Neutrophils % 59.1 % (41.7-73.7); Platelets 189 thou/uL (152-406); RBC Red Blood Cell Count 4.91 M/uL (4.33-5.43); Red Cell Distribution Width 14.1 % (12.1-15.2)
[2023-11-27 19:07] LABS: Albumin 3.6 g/dL (3.4-5.0); Albumin/Globulin Ratio 0.9 (1.1-1.8); Anion Gap 5.4 mEq/L (5.0-15.0); Bilirubin Total 0.8 mg/dL (0.2-1.0); Globulin 3.8 g/dL (2.3-3.5); PT Prothrombin Time 12.8 SECONDS (9.5-12.5); PTT, Activated Partial Thromb 38.3 SECONDS (24.3-36.9); Potassium 4.4 mEq/L (3.5-5.1); Protein, Total 7.4 g/dL (6.4-8.2); Protime INR 1.17
[2023-11-27 19:24] LABS: Specific Gravity 1.008 (1.005-1.030); Urine Bilirubin NEGATIVE (Negative); Urine Blood Negative (Negative); Urine Clarity Clear (Clear); Urine Color Light-Yellow (Yellow); Urine Glucose NEGATIVE (Negative); Urine Ketones NEGATIVE (Negative); Urine Microscopic Reflex YN NO UMIC; Urine Nitrite NEGATIVE (Negative); Urine Protein NEGATIVE (Negative); Urine Urobilinogen 1+ (Normal); Urine pH 6.5 (5.0-7.0)
--- NOTE | 2023-11-27 19:43 | RAD REPORT ---
EXAM DESCRIPTION: Dena Tirado Left11/27/2023 6:54 pm CLINICAL HISTORY: Left leg pain FINDINGS: No fracture is seen. No bony destructive lesion noted. Diffuse edema within the soft tissues may indicate a cellulitis
--- NOTE | 2023-11-27 20:15 | EDPHYS ---
Physician Documentation [facility] Name: Tip Wilburn Age: 63 yrs Sex: Male : 1960 Arrival Date: 11/27/2023 Time: 16:46 Bed 16 Private MD: ED Physician Dago Gallego HPI: 11/26 17:45 This 63 yrs old Male presents to ER via Wheelchair with complaints of Crush Injury To cp Leg. 17:45 The patient presents with an injury, swelling, tenderness, erythema. The complaints cp affect the left lower leg. 17:45 Context: injury to left lower leg 1 week ago after patient accidentally struck leg with cp sledgehammer . 17:45 Associated signs and symptoms: Pertinent positives: calf tenderness, warmth, Pertinent cp negatives fever, weakness. patient currently taking prescribed clindamycin antibiotic. Historical: - Allergies: 17:28 pantoprazole; nj1 - Home Meds: 17:39 amiodarone 200 mg Oral tablet 1 tab daily [Active]; apixaban 5 mg Oral tablet 1 tab 2 nj1 times per day [Active]; atorvastatin 80 mg Oral tablet 0.5 tab every day at bedtime [Active]; carvedilol 25 mg Oral tablet 0.5 tab 2 times per day [Active]; furosemide 40 mg Oral tablet 1 tab daily [Active]; metformin 500 mg Oral tablet 0.5 tab 2 times per day [Active]; omeprazole 20 mg Oral capsule 1 caps daily [Active]; sacubitril-valsartan 49-51 mg Oral tablet 1 tab 2 times per day [Active]; tamsulosin 0.4 mg Oral capsule 1 cap every day at bedtime [Active]; - PMHx: 17:28 Atrial Fib; CHF; GERD; Hypercholesterolemia; Hypertensive disorder; NIDDM; nj1 - PSHx: 17:28 AICD; hernia repair; knee sx; Tonsillectomy; nj1 - Immunization history:: Client reports receiving the 2nd dose of the Covid vaccine. - Infectious Disease History:: Denies. - Social history:: Smoking status: Patient denies any tobacco usage or history of. ROS: 17:50 Constitutional: Negative for body aches, chills, fever, poor PO intake, cp 17:50 Cardiovascular: Positive for edema, Negative for chest pain, palpitations, cp 17:50 Eyes: Negative for injury, pain, redness, and discharge, cp 17:50 ENT: Negative for drainage from ear(s), ear pain, sore throat, difficulty swallowing, difficulty handling secretions, 17:50 Respiratory: Negative for cough, shortness of breath, wheezing, 17:50 Abdomen/GI: Negative for abdominal pain, vomiting, diarrhea, constipation, 17:50 Back: Negative for pain at rest, pain with movement, 17:50 MS/extremity: Positive for erythema, pain, swelling, tenderness, of the left lower leg, 17:50 Neuro: Negative for altered mental status, dizziness, headache, weakness, cp 17:50 All other systems are negative, Exam: 17:55 Constitutional: The patient appears in no acute distress, alert, awake, cp non-diaphoretic, non-toxic, well developed, well nourished, obese, uncomfortable, 17:55 Head/Face: Normocephalic, atraumatic. cp 17:55 Eyes: Periorbital structures: appear normal, Conjunctiva: normal, no exudate, no injection, Sclera: no appreciated abnormality, Lids and lashes: appear normal, bilaterally, 17:55 ENT: External ear(s): are unremarkable, Nose: is normal, Mouth: Lips: moist, Oral mucosa: pink and intact, moist, Posterior pharynx: Airway: no evidence of obstruction, patent, 17:55 Chest/axilla: Inspection: normal, 17:55 Cardiovascular: Rate: normal, Rhythm: regular, Edema: ankle edema, that is moderate, left worse than right, JVD: is not appreciated, 17:55 Respiratory: the patient does not display signs of respiratory distress, Respirations: normal, no use of accessory muscles, no retractions, labored breathing, is not present, Breath sounds: are clear throughout, no bronchial sounds, no decreased breath sounds, 17:55 Abdomen/GI: Inspection: abdomen appears normal, Palpation: abdomen is soft and non-tender, in all quadrants, 17:55 Back: pain, is absent, ROM is normal, 17:55 Musculoskeletal/extremity: Extremities: noted in the left leg: moderate swelling, circumferential erythema noted, skin warm to touch, 17:55 Neuro: Orientation: to person, place \T\ time. Mentation: is normal, 21:57 ECG was reviewed by the Attending Physician. Vital Signs: 17:24 Pulse 75; Resp 18; Temp 98.4; Pulse Ox 99% ; Weight 156.94 kg; Height 6 ft. 2 in. ; nj1 Pain 3/10; 18:05 BP 115 / 93; Pulse 73; Resp 16; Pulse Ox 98% on R/A; me1 19:00 BP 117 / 87; Pulse 65; Resp 16; Pulse Ox 100% on R/A; me1 19:27 Pain 2/10; me1 20:00 BP 117 / 76; Pulse 81; Resp 16; Pulse Ox 97% ; me1 21:00 BP 118 / 88; Pulse 78; Resp 16; Pulse Ox 99% on R/A; me1 22:00 BP 110 / 64; Pulse 70; Resp 16; Pulse Ox 100% on R/A; me1 23:00 BP 113 / 85; Pulse 69; Resp 18; Pulse Ox 99% on R/A; me1 17:24 Body Mass Index 44.42 (156.94 kg, 187.96 cm) banner 17:24 Pain Scale: Adult banner 19:27 Pain Scale: Adult wi1 MDM: 17:32 Patient medically screened. 20:10 Data reviewed: vital signs, nurses notes, lab test result(s), EKG, radiologic studies, cp CT scan, ultrasound, I have discussed the patient's presentation/case with the attending Emergency Department Physician; and as a result, I will discharge patient. Consideration of Admission/Observation Escalation of care including admission/observation considered. I considered the following discharge prescriptions or medication management in the emergency department Medications were administered in the Emergency Department. See MAR. Care significantly affected by the following chronic conditions: Diabetes, Hypertension, Congestive Heart Failure, Obesity. 20:10 Differential diagnosis: dislocation. Counseling: I had a detailed discussion with the patient and/or guardian regarding the historical points, exam findings, and any diagnostic results supporting the discharge/admit diagnosis, lab results, radiology results, the need to transfer to another facility. 11/26 17:56 Order name: Blood Culture Adult (2) 11/26 17:56 Order name: CBC with Diff; Complete Time: 19:38 11/26 17:56 Order name: CMP; Complete Time: 19:38 cp 11/26 19:38 Interpretation: Normal except: GLUC 124; BUN 19; CRE 1.43; GFR 55; GLOB 3.8; A/G 0.9. cp 05/05 17:56 Order name: Lactate w/ 2H reflex if indic.; Complete Time: 19:38 cp 05/05 19:39 Interpretation: Reviewed. cp 05/05 17:56 Order name: Protime (+inr); Complete Time: 19:38 cp 05/05 17:56 Order name: Ptt, Activated; Complete Time: 19:38 cp 0505 17:56 Order name: Urinalysis w/ reflexes; Complete Time: 19:38 cp 05/05 17:33 Order name: XRAY Tib Fib LEFT; Complete Time: 20:05 cp 05/05 17:33 Order name: US Extremity Venous Unilateral Ltd; Complete Time: 19:38 cp 0505 17:56 Order name: Accucheck; Complete Time: 19:27 cp 0505 17:56 Order name: Cardiac monitoring; Complete Time: 21:43 cp 05/05 17:56 Order name: EKG - Nurse/Tech; Complete Time: 21:57 cp 0505 17:56 Order name: IV Saline Lock - Large Bore; Complete Time: 18:31 cp 05/05 17:56 Order name: Labs collected and sent; Complete Time: 18:31 cp 05/05 17:56 Order name: O2 Per Protocol; Complete Time: 18:13 cp 05/05 17:56 Order name: O2 Sat Monitoring; Complete Time: 18:13 cp 05/05 17:56 Order name: Vital Signs; Complete Time: 18:13 cp EC:57 Rate is 70 beats/min. Rhythm is irregular. QRS interval is normal. QT interval is cp normal. Interpreted by me. Reviewed by me. Administered Medications: 18:42 Drug: fentaNYL (PF) IVP 50 mcg IVP once Route: IVP; Site: left antecubital; me1 19:27 Follow up: Pain 2/10 Adult; Response: No adverse reaction; Pain is decreased me1 20:25 Drug: ceFAZolin IVPB 2 grams IVPB once over 30 mins; (mix in 100 mL NS) Route: IVPB; me1 Infused Over: 30 mins; Site: left antecubital; 21:06 Follow up: IV Status: Completed infusion; IV Intake: 100ml vc1 21:05 Drug: vancoMYCIN IVPB 1.5 grams IVPB at calculated rate once Route: IVPB; Rate: vc1 calculated rate; Site: left antecubital; 22:57 Follow up: Response: No adverse reaction; IV Status: Completed infusion; IV Intake: me1 250ml Disposition: 11/27 01:27 Co-signature as Attending Physician, Dago Gallego MD I reviewed the patient's care rn provided by the Advanced Practice Provider and agree with the diagnosis and treatment plan. Disposition Summary: 11/27/23 20:15 Transfer Ordered Notes: Transfer Location: [facility] cp Reason: Higher level of care cp Condition: Stable cp Problem: new cp Symptoms: have improved cp Accepting Physician: doctor(11/28/23 00:50) [id number] Diagnosis - Cellulitis of left lower limb cp Forms: - Medication Reconciliation Form cp - SBAR form cp Signatures: Dispatcher [employer] EDDago Esparza MD MD rn Page, Corey, PA PA cp Charley Lopes RN RN vc1 Ameena Leger RN RN nj1 Gilma Lou RN RN me1 Trey Stuart RN RN [id number] Corrections: (The following items were deleted from the chart) 11/26 17:57 17:57 BLOOD CULTURE*+BA.LAB.BRZ ordered. EDMS EDMS 17:57 17:57 CBC+H.LAB.BRZ ordered. EDMS EDMS 17:57 17:57 COMPREHENSIVE METABOLIC PANEL+C.LAB.BRZ ordered. EDMS EDMS 17:57 17:57 LACTATE+C.LAB.BRZ ordered. EDMS EDMS 17:57 17:57 PROTIME (+INR)+COAG.LAB.BRZ ordered. EDMS EDMS 17:57 17:57 PTT, ACTIVATED+COAG.LAB.BRZ ordered. EDMS EDMS 17:57 17:57 Urinalysis+U.LAB.BRZ ordered. EDMS EDMS 11/27 00:50 11/26 20:15 doctor cp [id number]
--- NOTE | 2023-11-27 20:15 | ER ---
Nurse's Notes [facility] Name: Tip Wilburn Age: 63 yrs Sex: Male : 1960 Arrival Date: 11/27/2023 Time: 16:46 Bed 16 Private MD: Diagnosis: Cellulitis of left lower limb Presentation: 11/26 17:24 Chief complaint: Patient states: Hit left lower leg with sledge hammer last Tuesday, nj1 went to [place] ED Tuesday. Leg was better yesterday but worsen today. More redness, swelling and pain. Takes eliquis. Coronavirus screen: Vaccine status: Patient reports receiving the 2nd dose of the covid vaccine. Ebola Screen: Patient denies travel to an Ebola-affected area in the 21 days before illness onset. Initial Sepsis Screen: Does the patient meet any 2 criteria? No. Patient's initial sepsis screen is negative. Does the patient have a suspected source of infection? No. Patient's initial sepsis screen is negative. Risk Assessment: Do you want to hurt yourself or someone else? Patient reports no desire to harm self or others. Onset of symptoms was November 20, 2023. 17:24 Method Of Arrival: Wheelchair [facility] 17:24 Acuity: BUNNY 3 nj1 Triage Assessment: 17:28 General: Appears in no apparent distress. comfortable, Behavior is calm, cooperative, nj1 appropriate for age. Pain: Complains of pain in left rubio Pain currently is 3 out of 10 on a pain scale. at worst was 10 out of 10 on a pain scale. Historical: - Allergies: 17:28 pantoprazole; nj1 - Home Meds: 17:39 amiodarone 200 mg Oral tablet 1 tab daily [Active]; apixaban 5 mg Oral tablet 1 tab 2 nj1 times per day [Active]; atorvastatin 80 mg Oral tablet 0.5 tab every day at bedtime [Active]; carvedilol 25 mg Oral tablet 0.5 tab 2 times per day [Active]; furosemide 40 mg Oral tablet 1 tab daily [Active]; metformin 500 mg Oral tablet 0.5 tab 2 times per day [Active]; omeprazole 20 mg Oral capsule 1 caps daily [Active]; sacubitril-valsartan 49-51 mg Oral tablet 1 tab 2 times per day [Active]; tamsulosin 0.4 mg Oral capsule 1 cap every day at bedtime [Active]; - PMHx: 17:28 Atrial Fib; CHF; GERD; Hypercholesterolemia; Hypertensive disorder; NIDDM; nj1 - PSHx: 17:28 AICD; hernia repair; knee sx; Tonsillectomy; nj1 - Immunization history:: Client reports receiving the 2nd dose of the Covid vaccine. - Infectious Disease History:: Denies. - Social history:: Smoking status: Patient denies any tobacco usage or history of. Screenin:23 [facility] ED Fall Risk Assessment (Adult) History of falling in the last 3 months, me1 including since admission No falls in past 3 months (0 pts) Confusion or Disorientation No (0 pts) Intoxicated or Sedated No (0 pts) Impaired Gait Yes (1 pt) Mobility Assist Device Used Yes (1 pt) Altered Elimination No (0 pt) Score/Fall Risk Level 0 - 2 = Low Risk Maintained a safe environment, Provided non-skid footwear, Hourly rounding (assess needs \T\ fall precautionary measures) done. Abuse screen: Denies threats or abuse. Nutritional screening: No deficits noted. Tuberculosis screening: No symptoms or risk factors identified. Assessment: 19:23 General: Appears uncomfortable, obese, well developed, well nourished, Behavior is me1 calm, cooperative, appropriate for age, Reports Hit left lower leg with sledge hammer last Tuesday, went to [place] ED Tuesday. Leg was better yesterday but worsen today. More redness, swelling and pain. Takes eliquis. Pain: Complains of pain in left leg and left rubio Pain does not radiate. Pain currently is 5 out of 10 on a pain scale. Quality of pain is described as tender, Pain began gradually, for the past week Is continuous. Neuro: Level of Consciousness is awake, alert, obeys commands, Oriented to person, place, time, situation, Appropriate for age. Cardiovascular: Capillary refill < 3 seconds Patient's skin is warm and dry. Respiratory: Airway is patent Respiratory effort is even, unlabored, Respiratory pattern is regular, symmetrical. GI: No signs and/or symptoms were reported involving the gastrointestinal system. : No signs and/or symptoms were reported regarding the genitourinary system. EENT: No signs and/or symptoms were reported regarding the EENT system. Derm: Skin is healthy with good turgor, Skin is pink, warm \T\ dry. Wound noted left leg and left rubio Wound is cellulitis. Musculoskeletal: No signs and/or symptoms reported regarding the musculoskeletal system. Injury Description: Crush injury sustained to left leg and left rubio is cellulitis. Red, warm, edematous. Hit left lower leg with sledge hammer last Tuesday, went to [place] ED Tuesday. Leg was better yesterday but worsen today. More redness, swelling and pain. Takes eliquis. was sustained one week. Vital Signs: 17:24 Pulse 75; Resp 18; Temp 98.4; Pulse Ox 99% ; Weight 156.94 kg; Height 6 ft. 2 in. ; nj1 Pain 3/10; 18:05 BP 115 / 93; Pulse 73; Resp 16; Pulse Ox 98% on R/A; me1 19:00 BP 117 / 87; Pulse 65; Resp 16; Pulse Ox 100% on R/A; me1 19:27 Pain 2/10; me1 20:00 BP 117 / 76; Pulse 81; Resp 16; Pulse Ox 97% ; me1 21:00 BP 118 / 88; Pulse 78; Resp 16; Pulse Ox 99% on R/A; me1 22:00 BP 110 / 64; Pulse 70; Resp 16; Pulse Ox 100% on R/A; me1 23:00 BP 113 / 85; Pulse 69; Resp 18; Pulse Ox 99% on R/A; me1 17:24 Body Mass Index 44.42 (156.94 kg, 187.96 cm) nj1 17:24 Pain Scale: Adult nj1 19:27 Pain Scale: Adult ar1 ED Course: 16:51 Patient arrived in ED. ra3 17:02 Romero Tang PA is PHCP. cp 17:02 Romero Downey MD is Attending Physician. cp 17:28 Triage completed. nj1 17:28 Arm band placed on right wrist. nj1 17:58 US Extremity Venous Unilateral Ltd In Process Unspecified. EDMS 18:10 Gilma Lou, LELE is Primary Nurse. me1 18:27 Initial lab(s) drawn, by ar, sent to lab. First set of blood cultures drawn. me1 18:30 Inserted saline lock: 20 gauge in left antecubital area, using aseptic technique. me1 18:31 Blood Culture Adult (2) Sent. me1 18:31 CBC with Diff Sent. me1 18:31 CMP Sent. me1 18:31 Lactate w/ 2H reflex if indic. Sent. me1 18:31 Protime (+inr) Sent. me1 18:31 Ptt, Activated Sent. me1 18:35 Second set of blood cultures drawn by me. me1 18:56 XRAY Tib Fib LEFT In Process Unspecified. EDMS 19:22 Dago Gallego MD is Attending Physician. cp 19:23 Patient has correct armband on for positive identification. Bed in low position. Call me1 light in reach. Side rails up X2. Provided Education on: POC. Verbalized understanding. . Client placed on continuous cardiac and pulse oximetry monitoring. NIBP monitoring applied. quality assurance monitor final on. Pulse ox on. NIBP on. 19:23 No provider procedures requiring assistance completed. me1 21:57 EKG done, by ED staff, reviewed by Romero EDMOND. me1 23:50 Patient transferred, IV remains in place. me1 23:58 Report received from lele diallo assuming care of pt at this time. bm8 Administered Medications: 18:42 Drug: fentaNYL (PF) IVP 50 mcg IVP once Route: IVP; Site: left antecubital; me1 19:27 Follow up: Pain 2/10 Adult; Response: No adverse reaction; Pain is decreased me1 20:25 Drug: ceFAZolin IVPB 2 grams IVPB once over 30 mins; (mix in 100 mL NS) Route: IVPB; me1 Infused Over: 30 mins; Site: left antecubital; 21:06 Follow up: IV Status: Completed infusion; IV Intake: 100ml vc1 21:05 Drug: vancoMYCIN IVPB 1.5 grams IVPB at calculated rate once Route: IVPB; Rate: vc1 calculated rate; Site: left antecubital; 22:57 Follow up: Response: No adverse reaction; IV Status: Completed infusion; IV Intake: me1 250ml Medication: 19:23 VIS not applicable for this client. me1 Intake: 21:06 IV: 100ml; Total: 100ml. vc1 22:57 IV: 250ml; Total: 350ml. me1 Output: 23:03 Urine: 680ml (Voided); Total: 680ml. me1 Outcome: 20:15 ER care complete, transfer ordered by . cp 23:50 Transferred by ground EMS to [facility] Transfer form completed. me1 Note: report called to LELE Fall 23:50 Condition: stable 23:50 Instructed on the need for transfer, 11/27 00:50 Patient left the ED. bm8 Signatures: Dispatcher [employer] EDMS Romero Tang PA PA cp Calcote, Vanessa RN RN vc1 Ameena Leger RN RN nj1 Gilma Lou RN RN me1 Misti Ocampo 3 Trey Stuart RN RN bm8 Corrections: (The following items were deleted from the chart) 11/26 19:23 17:24 Chief complaint: Patient states: Hit left lower leg with sledge hammer last me1 Tuesday, went to [place] ED Tuesday. Leg was better yesterday but worsen today. More redness, swelling and pain. Takes eliquis. nj1
[2023-11-27] MEDS ORDERED: VANCOMYCIN 500 MG/VIAL ONE (20:21)
[2023-11-27] MEDS ORDERED: VANCOMYCIN 1 GM/VIAL ONE (20:21)
[2023-11-27] MEDS ORDERED: NA CHLORIDE 0.9% 250 ML ONE (20:22)
[2023-11-27] MEDS ORDERED: CEFAZOLIN SODIUM 2 GM/VIAL ONE (20:22)
[2023-11-27] MEDS ORDERED: NA CHLORIDE 0.9% 100 ML ONE (20:22)
[2023-11-28 01:11] VITALS: BP 113/85; TEMP 98.4; O2SAT 99
--- NOTE | 2023-11-28 14:38 | EKG ---
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: MEASUREMENT RESULTS: Intervals: Rate: 70 NV: QRSD: 92 QT: 378 QTc: 408 [place]: P: NV: QRS: 15 T: 28 INTERPRETIVE STATEMENTS: Demand pacemaker, interpretation is based on intrinsic rhythm Atrial fibrillation with premature ventricular or aberrantly conducted complexes Low voltage QRS T wave abnormality, consider lateral ischemia or digitalis effect Abnormal ECG Compared to ECG 03/26/2023 09:41:38 Ventricular premature complex(es) now present T-wave abnormality now present Myocardial infarct finding no longer present ST (T wave) deviation no longer present Possible ischemia still present Electronically Signed On 11-28-23 14:37:18 CDT by Valerio Hernandez
== END 2023-11-28 00:50 ==
LOC: ER 16:46
DX: L03.116 Cellulitis of left lower limb (principal); Z88.8 Allergy status to other drugs, medicaments and biological substances
CPT/HCPCS: 96365; 93005; 87040 ×2; 85025; 36415; 85610; 83605; 85730; 81003; 80053; 73590; 93971; 96375; 99285; 96366; J3010; J7050